=== PATIENT | male | born 1935 | race Caucasian/White ===

== ENCOUNTER 2017-11-12 07:09 | Inpatient (IN) | payer MEDICARE, OTHER ==
[2017-11-12] MEDS ORDERED: Lidocaine 1% w/Epinephrine 1:100K 20 ML VIAL ONE (07:45)
[2017-11-12] MEDS ORDERED: Bacitracin Zinc 1 Packet ONE ×2 (07:48→11:19)
[2017-11-12 09:38] LABS: #Lymphocytes 1.3 thou/uL (1.20-3.40); #Monocytes 0.8 thou/uL (0.11-0.59); #Neutrophils 11.7 thou/uL (1.40-6.50); %Basophils 0.2 % (0.0-1.0); %Eosinophils 0.3 % (0.0-10.0); %Neutrophils 84.5 % (42.0-75.0); Hemoglobin 16.5 g/dL (14.0-18.0); Mean Corpuscular HGB CONC 35.4 g/dL (32.0-36.0); Mean Corpuscular Hemoglobin 33.8 pg (27.0-31.0); Mean Corpuscular Volume 95.7 fL (78.0-98.0); Mean Platelet Volume 6.5 fL (7.4-10.4); Platelet Count 235 thou/uL (130-400); RBC Distribution Width 11.6 % (11.5-14.5); Red Blood Cell (RBC) Count 4.89 mill/uL (4.70-6.10); White Blood Cell (WBC) Count 13.9 thou/uL (4.8-10.8)
[2017-11-12] MEDS ORDERED: hydrALAZINE 20 MG/ML VIAL ONE (09:40)
[2017-11-12 09:47] LABS: PTT 23.3 SEC (22.9-36.1)
[2017-11-12 10:00] LABS: ALT (SGPT) 23 U/L (8-55); AST (SGOT) 18 U/L (5-34); Albumin 3.8 g/dL (3.4-4.8); Alkaline Phosphatase 91 U/L (40-150); Anion Gap 12 mmol/L (10-20); BUN (Urea Nitrogen) 19 mg/dL (8.4-25.7); Bilirubin, Total 0.7 mg/dL (0.2-1.2); Calc. Creatinine Clearance 0 mL/min (70-130); Calcium 9.7 mg/dL (7.8-10.44); Carbon Dioxide 30 mmol/L (23-31); Chloride 99 mmol/L (98-107); Estimated GFR-MDRD 74; Globulin 2.9 g/dL (2.4-3.5); Glucose 157 mg/dL (83-110); Potassium 3.2 mmol/L (3.5-5.1); Protein, Total 6.7 g/dL (5.8-8.1); Sodium 138 mmol/L (136-145)
--- NOTE | 2017-11-12 10:08 | CT ---
CT HEAD WITHOUT CONTRAST: Date: 11-12-17 Comparison: None. History: Fall, trauma, pain. Technique: Serial axial CT imaging at 5 mm intervals from vertex through skull base without contrast. FINDINGS: The imaged paranasal sinuses and mastoid air cells are well aerated. There is no displaced calvarial fracture noted. There is mild diffuse cerebral volume loss with associated prominence of the CSF containing spaces. On axial image 7 within the ventral aspect of the middle cranial fossa on the right there is a 6-7 mm focus of hyperdensity suggesting small volume extraaxial hemorrhage. On image 19 there is a punctate focus of hyperdensity in the frontal region on the right, also suggesting extraaxial hemorrhage. The re are linear areas of hyperdensity near the vertex on image 24 and 25 suggesting additional small vo lume extraaxial hemorrhage. There is no midline shift or mass effect seen. Probable focus of extraaxi al hemorrhage anterior to right frontal lobe on image 22. There is evidence of scalp laceration super iorly near the vertex posteriorly with associated cutaneous renita. IMPRESSION: Findings suggesting small volume multifocal extraaxial hemorrhage on the right. No associated fractur e. Results called to Dr. Watts 8:55 a.m. 11-12-17. Code CR POS: [facility]
[2017-11-12] MEDS ORDERED: Dextrose 5% in Water 1,000 ML IV PRN (11:12)
[2017-11-12] MEDS ORDERED: Dextrose 50% Abboject 50 ML SYRINGE SLOW IVP PRN (11:12)
[2017-11-12] MEDS ORDERED: Adacel (T-DAP) 0.5 ML VIAL ONE (11:29)
--- NOTE | 2017-11-12 12:14 | HP-2 ---
DATE OF ADMISSION: 11/12/2017 ATTENDING PHYSICIAN: Dr. Timmy Polo REQUESTING PHYSICIAN: Dr. Watts HISTORY OF PRESENT ILLNESS: This patient is an 82-year-old male who presents to the ED after a fall that occurred in the morning while he was trying to walk to the bathroom. The patient said that he hit his head resulting in a laceration to the back of his head. His family reports that they do believe the patient was unconscious for a short amount of time, but they could not quantify how long. They did state that they heard the fall. The patient does take a sleeping pill, it makes him very drowsy and more likely to fall. The patient does report some dizziness with movement. Other than the laceration to the back of his head, the patient does not report any other injuries or any other pains at this time. No other complaints were present today. ALLERGIES: Patient reports allergies to SULFA ANTIBIOTICS. HOME MEDICATIONS: 1. Atenolol-Chlorthalidone 100 mg/25 mg daily. 3. Trifluoperazine unknown dosage. 4. Trihexyphenidyl, unknown dosage. Medication reconciliation to be completed by floor nursing staff. PAST MEDICAL HISTORY: Hypertension, schizophrenia, insomnia. PAST SURGICAL HISTORY: Hydrocele removal, appendectomy, cholecystectomy. SOCIAL HISTORY: The patient lives at home currently with his . The patient denies any smoking history. Denies any alcohol or drug use history. FAMILY HISTORY: Noncontributory to this patient. REVIEW OF SYSTEMS: A 10 point review of systems was performed and negative except for as indicated in the HPI. PHYSICAL EXAMINATION: VITAL SIGNS: BP was 168/81, pulse 85, respirations 18. Oxygen saturation was 94% on room air. GENERAL: He is a well-developed male in no acute distress. A&O x4 HEENT: Head is normocephalic. He does have a 4 cm laceration with renita in place to the posterior occipital area of his cranium. Eyes; PERRLA. Extraocular movements are intact. NECK: Supple. Trachea is midline. No midline tenderness to palpation. CARDIOVASCULAR: Regular rate and rhythm, no murmurs. RESPIRATORY: Clear to auscultation bilaterally. No wheezing. ABDOMEN: Soft, nontender, nondistended. Bowel sounds are normoactive. MUSCULOSKELETAL: Moves all 4 extremities. No edema, no erythema. NEUROLOGIC: GCS of 15. No focal deficits noted. LABORATORY DATA: Sodium 138, potassium 3.2, chloride 99, BUN 19, creatinine 0.97, glucose 157, calcium 9.7, AST 18, ALT 23, total bilirubin 0.7, PTT 23.3, PT 13.0, INR 1.0. White blood cell count 13.9, platelet count of 235. Hemoglobin 16.5, hematocrit 46.8. RADIOGRAPHIC FINDINGS: The patient underwent a brain CT on 11/12/2017 that showed findings suggestive of small volume multifocal extraocular hemorrhage on the right, no associated fracture. ASSESSMENT AND PLAN: 1. Status post mechanical fall. 2. Multifocal extraocular hemorrhage. 3. Acute traumatic pain. 4. History of schizophrenia. 5. History of chronic sleep disorder. 6. History of hypertension. PLAN: Admit to Trauma Services. Neurosurgery PA was contacted. They have requested a schedule of a repeat CT scan this afternoon to monitor the hemorrhages. The patient will then be seen by OT and PT evaluation for possible placement into rehabilitation if needed. The patient will be started on p.o. analgesics including acetaminophen 1000 mg p.o. q.6 hours. Also, will be put on GI prophylaxis with famotidine 20 mg p.o. b.i.d. The patient will be given a regular diet and also be put on fall precautions. Plan for admission was discussed with the patient and his as well as his son, all that were present during the interview. All questions were answered at this time of dictation. This patient was seen and evaluated with the trauma attending, Dr. Polo, who is in agreement with this plan. JUANITA
[2017-11-12 13:47] VITALS: BMI 26.2
[2017-11-12] MEDS: Famotidine 20 MG TAB PO SCH (20:48)
[2017-11-12] MEDS: TRIFLUOPERAZINE HCL 2 MG PO SCH (20:48)
[2017-11-12] MEDS: FLURAZEPAM HCL 15 MG PO SCH (20:48)
[2017-11-12] MEDS: Melatonin 3 MG TAB PO SCH (20:50)
--- NOTE | 2017-11-13 02:27 | CON ---
DATE OF CONSULTATION: 11/12/2017 ATTENDING PHYSICIAN: Israel Link MD HISTORY OF PRESENT ILLNESS: The patient is an 82-year-old male with past medical history of schizophrenia, insomnia, hypertension who presented to the emergency department after a mechanical fall, which occurred while ambulating to the bathroom in the middle of the night. The patient was brought to the emergency department where CT head was done on arrival, which showed slight hyperdensity in the right frontal and parietal region suspicious for acute intracranial hemorrhage. I am seeing the patient at the bedside in the [facility], he is A and O x4. He has no focal neurologic deficits on my exam. He has no complaints at this time. PAST MEDICAL HISTORY: Hypertension, schizophrenia, insomnia. PAST SURGICAL HISTORY: Hydrocele removal, appendectomy, cholecystectomy. ALLERGIES: Patient reports allergic to SULFA. SOCIAL HISTORY: The patient resides at home with his . He does not smoke, drink, or use any drugs. FAMILY HISTORY: Noncontributory. REVIEW OF SYSTEMS: Per HPI. PHYSICAL EXAMINATION: CONSTITUTIONAL: The patient is A and O x4, comfortable, in no acute distress. GCS 15. HEAD: He has a small laceration to the occipital region with renita in place. EYES: PERRLA. Extraocular movements are intact. ENT: Oral mucosa is pink, intact and moist. He has normal voice. NECK: Nontender to palpation. Free active range of motion. No meningismus or nuchal rigidity. CARDIOVASCULAR: Regular rate and rhythm. LUNGS: The patient is breathing comfortably with symmetric chest expansion. MUSCULOSKELETAL: The patient is able to move all extremities. No focal motor weakness or reflex asymmetry. NEUROLOGIC: GCS 15, A and O x4. No focal deficits are appreciated. ASSESSMENT AND PLAN: This is an 82-year-old male who was admitted to the [facility] after mechanical fall with small intraparenchymal hemorrhage in the right frontal and right parietal region. He does not take any anticoagulants and his INR is 1.0, his platelets are 235,000. He will be monitored closely in the [facility] tonight. We will plan to repeat the exam of head CT. I do not anticipate any acute neurosurgical intervention at this time. Please reach out to Neurosurgery for additional questions or concerns. JUANITA
--- NOTE | 2017-11-13 08:30 | CT ---
PRELIMINARY REPORT/[facility]/EMERGENTY AFTER-HOURS PROCEDURE CT Head Without Intravenous Contrast CLINICAL HISTORY: 82 years old, male; Condition or disease; Other: Ich repeat eval TECHNIQUE: Axial computed tomography images of the head/brain without intravenous contrast. COMPARISON: CT Brain WO Con 2017-11-12 08:46 FINDINGS: Brain: Stable CSF density bifrontal subdural hygromas/effusions. The small superior right frontal and right temporal extra-axial hemorrhages have mildly decreased compared to the prior study. No new hem orrhages. No brain edema. No midline shift. Ventricles: Normal. No ventriculomegaly. Bones/joints: Normal. No acute fracture. Sinuses: Normal as visualized. No acute sinusitis. Mastoid air cells: Normal as visualized. No mastoid effusion. Soft tissues: Normal. Other findings: Generalized volume loss. IMPRESSION: 1. Stable CSF density bifrontal subdural hygromas/effusions. 2. The small superior right frontal and right temporal extra-axial hemorrhages have mildly decreased compared to the prior study. Thank you for allowing us to participate in the care of your patient. Dictated and Authenticated by: Jose Bliss MD 11/13/2017 5:27 AM Central Time ([place] & [place]) FINAL REPORT BRAIN CT WITHOUT IV CONTRAST: EMERGENCY AFTER HOURS EXAM TIME: 4:30 a.m. DATE: 11/13/17. COMPARISON: 11/12/17. HISTORY: Followup intracranial hemorrhage. FINDINGS: Stable bifrontal subdural hygromas. Small focus of right frontal and right temporal extraaxial hemor rhage appears somewhat less intense. No evidence for new hemorrhage. POS: [facility]
[2017-11-13] MEDS ORDERED: Prevnar 13-Val Conj/PF 0.5 ML SYRINGE IM ONE (09:00)
[2017-11-13] MEDS: Senokot S 8.6-50 MG TAB PO SCH ×2 (09:01→23:25)
[2017-11-13] MEDS: Polyethylene Glycol 3350 17 GM Packet PO SCH (09:01)
[2017-11-13] MEDS: Atenolol 50 MG TAB PO SCH (09:01)
[2017-11-13] MEDS: Famotidine 20 MG TAB PO SCH ×2 (09:02→23:25)
[2017-11-13] MEDS: TRIFLUOPERAZINE HCL 2 MG PO SCH ×3 (09:02→23:24)
[2017-11-13] MEDS: Rosuvastatin 5 MG TAB PO SCH (09:02)
[2017-11-13] MEDS: TRIHEXYPHENIDYL HCL 2 MG PO SCH ×3 (09:02→16:48)
--- NOTE | 2017-11-13 11:12 | PRG ---
DATE OF SERVICE: 11/13/2017 The patient was seen and examined, I agreed with Xuan Puri PA-C note 11/12/2017. The patient is an 82-year-old man with a recent fall. He is currently at his neurologic baseline. The radiologist felt that his initial head CT revealed some tiny extraaxial hemorrhage. This prompte d his admission. My review of the prior CT suggests that these findings are ambiguous. Certainly on the followup CT scan from this morning there is no evidence of intracranial hemorrhage. He has transportation job titles brady subdural hygromas, which are stable. IMPRESSION AND PLAN: Possible tiny extraaxial traumatic hemorrhages. Resolved on followup CT. No s pecific clinical sequelae. PLAN: He can be mobilized to dismissal. No specific recommendations for repeat imaging.
[2017-11-13] MEDS ORDERED: Lorazepam 1 MG TAB PO PRN (17:34)
[2017-11-13] MEDS ORDERED: TRIHEXYPHENIDYL HCL 2 MG PO SCH (17:45)
[2017-11-13] MEDS ORDERED: Lorazepam 2 MG/ML VIAL SLOW IVP SCH (17:45)
[2017-11-13] MEDS: FLURAZEPAM HCL 15 MG PO SCH (23:24)
[2017-11-13] MEDS: Melatonin 3 MG TAB PO SCH (23:24)
--- NOTE | 2017-11-14 01:32 | PRG ---
DATE OF SERVICE: 11/13/2017 SUBJECTIVE: The patient is status post ground level fall in which he had a small volume multifocal e xtraaxial hemorrhage that was repeat CT this morning, which showed to be stable and after evaluation by Neurosurgery, they cleared him to be discharged either to home or to rehab, whichever the patient and his family desire. The patient had no issues overnight. This morning, he is tolerating a diet. His pain is controlled. He has worked with physical and occupational therapy to such a degree of th at they have actually discharged him to the walking program. After discussion with the family, they would still like him evaluated for therapy due to his repeated frequent falls. PHYSICAL EXAMINATION: VITAL SIGNS: Temperature is 98.4, heart rate 77, blood pressure 131/54, respirations 16, oxygen satu ration 96% on room air. GENERAL: The patient is sitting on the side of his bed. He is awake, alert, conversant, and appropr iate. HEENT: Essentially unchanged. His renita in the posterior aspect of his head are clean, dry, and i ntact. No evidence or signs of infection. Eyes: Extraocular motion intact. PERRLA bilaterally. E ars are atraumatic without discharge. Nose is atraumatic without discharge. Oropharynx is clear. NECK: Nontender. Trachea is midline. No JVD. LUNGS: Chest is clear to auscultation with good inspiratory and expiratory effort. HEART: Regular rate and rhythm. EXTREMITIES: The patient freely moves all 4 extremities. His capillary refill is less than 3 second s and his pulses are 2+. LABORATORY DATA: There are no labs this morning. RADIOGRAPHS: A repeat CT of the brain show the small superior right frontal and right temporal extra axial hemorrhages have mildly decreased compared to the prior study. ASSESSMENT AND PLAN: 1. Status post ground level fall. 2. Resolving intracranial hemorrhages. 3. History of frequent falls. Plan will be to have the patient evaluated by rehab for possibility of placement. The evaluation and examination were discussed with Dr. Polo at rounds this morning.
[2017-11-14] MEDS ORDERED: Lorazepam 1 MG TAB PO SCH (03:45)
[2017-11-14] MEDS: TRIHEXYPHENIDYL HCL 2 MG PO SCH ×3 (09:31→17:48)
[2017-11-14] MEDS: TRIFLUOPERAZINE HCL 2 MG PO SCH ×5 (09:31→20:46)
[2017-11-14] MEDS: Senokot S 8.6-50 MG TAB PO SCH ×2 (09:32→20:47)
[2017-11-14] MEDS: Atenolol 50 MG TAB PO SCH (09:32)
[2017-11-14] MEDS: Polyethylene Glycol 3350 17 GM Packet PO SCH (09:33)
[2017-11-14] MEDS: Famotidine 20 MG TAB PO SCH ×2 (09:33→20:47)
[2017-11-14] MEDS: Rosuvastatin 5 MG TAB PO SCH (09:33)
[2017-11-14] MEDS: Melatonin 3 MG TAB PO SCH (20:03)
[2017-11-14] MEDS: FLURAZEPAM HCL 15 MG PO SCH (20:44)
[2017-11-14] MEDS: Acetaminophen 500 MG TAB PO PRN (20:44)
--- NOTE | 2017-11-14 21:02 | PRG ---
DATE OF SERVICE: 11/14/2017 SUBJECTIVE: The patient is currently on the surgical floor. He is status post ground level fall in which he sustained very small extraaxial hemorrhages on his frontal region. A repeat CT showed that these had almost completely resolved and the patient was hopefully being placed in a rehab facility, but overnight the patient primarily due to his schizophrenia, underlying his recent traumatic brain i alfredo was extremely agitated all night. He was pacing around and required a sitter and eventually re straints. This morning, the patient is resting comfortably. He is awake. He is able to be come out of his restraints and he is somewhat conversant. He appears to me to be back at his baseline. PHYSICAL EXAMINATION: VITAL SIGNS: Temperature is 98.2, heart rate 83, blood pressure 129/66, respirations 20, oxygen satu ration 95% on room air. GENERAL: The patient is resting comfortably in bed. He will open his eyes to verbal stimuli and karen l answer very simple questions. Does not recall anything going on last night. States that he is cur rently not hungry and he will follow simple commands. HEENT: Unchanged. LUNGS: Clear to auscultation with good inspiratory and expiratory effort. HEART: Regular rate and rhythm. ABDOMEN: Soft, flat, nontender with active bowel sounds. EXTREMITIES: Neurovascularly intact x4. LABORATORY DATA: There are no labs or radiographs to review this morning. ASSESSMENT AND PLAN: 1. Status post ground level fall. 2. Resolving intracranial hemorrhages. 3. History of frequent falls. 4. History of schizophrenia. Plan will be to continue supportive care. Lengthy discussion was had with the and son in regard s to the patient unlikely being a good candidate to go to inpatient rehabilitation due to the fact th at he becomes so agitated. Now, he is out of his normal routine. The son was very agreeable to this point and we will discuss if there are any other options for the patient to include possibly getting outpatient home health to assist. We will have the case workers work with that and also possibly ad vise them on having the patient placed through their primary care provider.
[2017-11-15 04:21] LABS: #Lymphocytes 1.2 thou/uL (1.20-3.40); #Monocytes 1.5 thou/uL (0.11-0.59); #Neutrophils 15.4 thou/uL (1.40-6.50); %Basophils 0.2 % (0.0-1.0); %Eosinophils 0.2 % (0.0-10.0); %Lymphocytes 6.4 % (21.0-51.0); %Neutrophils 85.2 % (42.0-75.0); Hemoglobin 12.9 g/dL (14.0-18.0); Mean Corpuscular HGB CONC 35.1 g/dL (32.0-36.0); Mean Corpuscular Hemoglobin 33.9 pg (27.0-31.0); Mean Corpuscular Volume 96.6 fL (78.0-98.0); Mean Platelet Volume 6.8 fL (7.4-10.4); Platelet Count 184 thou/uL (130-400); RBC Distribution Width 11.6 % (11.5-14.5); Red Blood Cell (RBC) Count 3.81 mill/uL (4.70-6.10); White Blood Cell (WBC) Count 18.1 thou/uL (4.8-10.8)
--- NOTE | 2017-11-15 08:10 | RAD ---
PORTABLE CHEST: Date: 11/15/17 HISTORY: Fever. FINDINGS: The lung cifuentes are clear. No infiltrate or vascular congestion. Heart and mediastinum unremarkable. IMPRESSION: No acute lung process. POS: [facility]
[2017-11-15] MEDS: Atenolol 50 MG TAB PO SCH (09:33)
[2017-11-15] MEDS: Rosuvastatin 5 MG TAB PO SCH (09:33)
[2017-11-15] MEDS: Polyethylene Glycol 3350 17 GM Packet PO SCH (09:33)
[2017-11-15] MEDS: Senokot S 8.6-50 MG TAB PO SCH ×2 (09:33→20:24)
[2017-11-15] MEDS: Famotidine 20 MG TAB PO SCH ×2 (09:33→20:25)
[2017-11-15] MEDS: TRIHEXYPHENIDYL HCL 2 MG PO SCH ×3 (10:23→18:05)
[2017-11-15] MEDS: TRIFLUOPERAZINE HCL 2 MG PO SCH ×3 (10:27→20:24)
[2017-11-15 11:27] LABS: Bilirubin Negative (Negative); Blood, Urine Negative (Negative); Clarity CLEAR (Clear); Glucose, Urine (Dipstick) Negative (Negative); Leukocyte Negative (Negative); Nitrite Negative (Negative); Protein, Urine (Dipstick) 30 mg/dL (Neg-Trace); Specific Gravity, Urine 1.027 (1.002-1.036); Urobilinogen 0.2 mg/dL (0.2-1.0); pH, Urine 6.5 (5.0-9.0)
[2017-11-15 11:29] LABS: Bacteria/HPF None Seen HPF (None Seen); Hyaline Casts/LPF 0-3 HYALINE CAST LPF (0-3 Hyaline); Pathc Cast-AUWi Flag 0.43 (0-2.49)
[2017-11-15 11:43] LABS: RBC/HPF 0-3 HPF (0-3); Renal Epithelial 0-3 HPF (0-3); Transitional Epithelial 0-3 HPF (0-3)
[2017-11-15] MEDS: FLURAZEPAM HCL 15 MG PO SCH (20:23)
[2017-11-15] MEDS: Acetaminophen 500 MG TAB PO PRN (20:24)
[2017-11-15] MEDS: Melatonin 3 MG TAB PO SCH (22:15)
[2017-11-16 08:37] LABS: #Eosinphils 0.1 thou/uL (0.0-0.7); #Lymphocytes 1.2 thou/uL (1.20-3.40); #Monocytes 1.5 thou/uL (0.11-0.59); #Neutrophils 13.7 thou/uL (1.40-6.50); %Basophils 0.1 % (0.0-1.0); %Eosinophils 0.5 % (0.0-10.0); %Lymphocytes 7.3 % (21.0-51.0); %Monocytes 8.9 % (0.0-10.0); %Neutrophils 83.2 % (42.0-75.0); Mean Corpuscular HGB CONC 33.7 g/dL (32.0-36.0); Mean Corpuscular Hemoglobin 32.8 pg (27.0-31.0); Mean Corpuscular Volume 97.3 fL (78.0-98.0); Mean Platelet Volume 6.4 fL (7.4-10.4); Platelet Count 189 thou/uL (130-400); RBC Distribution Width 11.5 % (11.5-14.5); Red Blood Cell (RBC) Count 4.25 mill/uL (4.70-6.10); White Blood Cell (WBC) Count 16.5 thou/uL (4.8-10.8)
[2017-11-16] MEDS: Famotidine 20 MG TAB PO SCH ×2 (08:43→20:04)
[2017-11-16] MEDS: Atenolol 50 MG TAB PO SCH (08:43)
[2017-11-16] MEDS: Rosuvastatin 5 MG TAB PO SCH (08:43)
[2017-11-16] MEDS: TRIHEXYPHENIDYL HCL 2 MG PO SCH ×3 (08:44→18:14)
[2017-11-16] MEDS: Polyethylene Glycol 3350 17 GM Packet PO SCH (08:44)
[2017-11-16] MEDS: Senokot S 8.6-50 MG TAB PO SCH ×2 (08:44→20:04)
[2017-11-16] MEDS: TRIFLUOPERAZINE HCL 2 MG PO SCH ×3 (08:44→20:04)
--- NOTE | 2017-11-16 11:22 | RAD ---
FOUR VIEW RIGHT ELBOW SERIES: INDICATION: Right elbow injury, pain, recent fall. FINDINGS: There is a prominent olecranon enthesophyte with overlying soft tissue prominence. Underlying soft t issue hypodensity could relate to air from a laceration. Correlate clinically in this regard. 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 There is joint capsular distention. A component of cortical irregularity does overlie the medial epicondyle of the distal humerus. There is also slight cortical lucency about the radial head. IMPRESSION: Joint capsular distention with areas of cortical irregularity of the elbow as discussed above. If ne cessary, CT exam may be prove useful for further anatomic delineation. POS: [facility]
--- NOTE | 2017-11-16 11:39 | CON ---
DATE OF CONSULTATION: 11/16/2017 REQUESTING PHYSICIAN: Trauma Service CONSULTING PHYSICIAN: Sulaiman Duong M.D. REASON FOR CONSULTATION: Possible right elbow septic olecranon bursitis. HISTORY OF PRESENT ILLNESS: This is an 82-year-old male who was admitted to our facility this past T nu 11/12/2017 after a fall at home. He was attempting to walk to the bathroom. It was reported that he hit his head and sustained a laceration. CT scan showed an extraaxial hemorrhage. The ricardo ent has been followed by Neurosurgery and the extraaxial hemorrhage has now resolved. The patient wa s being readied to be discharged to a assisted facility when he was noted to have redness and swelling to his right elbow. We have been consulted for this reason. Today at bedside, the family r eports that they believe he might have struck his elbow on his fall on . They state he is a frequent gina. He is right hand dominant. They do report that he had some redness to the right el bow when he was admitted. They feel that his swelling and redness increased overnight last night. T zacarias report drainage started this morning. He has had fever during this admission approximately 2 nig hts ago. He denies a history of a septic joint. He denies any history of orthopedic surgery to this extremity in the past. PAST MEDICAL HISTORY: Hypertension, schizophrenia, insomnia. PAST SURGICAL HISTORY: Appendectomy, cholecystectomy, hydrocele. SOCIAL HISTORY: The patient lives at home with his . He denies any smoking, alcohol or illicit drug use. FAMILY HISTORY: Reviewed and noncontributory. REVIEW OF SYSTEMS: A 10 point review of systems was conducted and otherwise negative except for as s tated above. PHYSICAL EXAMINATION: VITAL SIGNS: Blood pressure 144/72, pulse 82, temperature 98.7, O2 saturation 92% on room air and re spiratory rate of 20. GENERAL: The patient is awake, alert, and oriented x3. He is in no acute distress. Family is at be dside. He is pleasant and cooperative with exam findings today. HEENT: Head is normocephalic, atraumatic. NECK: Supple. Trachea is midline. EXTREMITIES: The right upper extremity was evaluated. There is erythema to the elbow with some soft tissue swelling present. There is soft tissue swelling proximal to mid humerus. There is soft tiss ue swelling distal all the way to the fingertips. There is spontaneous drainage from the elbow olecr anon region. There is an opening approximately 0.5 cm. Drainage appears to be clear. No purulence noted. Range of motion assessed. The patient has active range of motion including flexion and exten luis alberto without any pain or difficulty. The patient is also able to pronate and supinate without any pa in or difficulty. Distal neurovascular status is intact. The remainder of the extremity exam is unr emarkable. RADIOGRAPHIC FINDINGS: Including 4 views of the right elbow taken today show no evidence for acute f racture. There is evidence of an olecranon bone spur. There is also evidence of a cortical irregula rity along the shaft of the ulna. These findings were reviewed with Dr. Duong today. LABORATORY DATA: CBC today shows a white blood cell count of 16.5. This is decreased from 18.1 yest erday. Hemoglobin of 14.0, hematocrit of 41.4, platelet count of 189. ASSESSMENT: Right elbow olecranon bursitis with spontaneous drainage. PLAN: Case briefly discussed with Dr. Duong. He will consult with me at bedside once he returns from clinic today. I have discussed with the patient today that it is very likely that we will start him on antibiotics. Trauma Service has discussed clindamycin. He last ate breakfast this morning. There is a possibility of incision and drainage. We will further discuss plan of care once Dr. Halley morillo arrives here at the hospital. No evidence of septic joint at this time. Thank you for this consultation.
[2017-11-16] MEDS ORDERED: Clindamycin/D5W 900 MG in Premix Bag 1 BAG IVPB ONE (14:00)
--- NOTE | 2017-11-16 18:08 | PRG ---
DATE OF SERVICE: 11/16/2017 SUBJECTIVE: Mr. King is post-injury day 4 status post ground level fall. The patient suffered smal l right frontal intracerebral hemorrhage. He has remained neurologically normal overnight. He defin itely is less impulsive today. The patient reports he is sleeping quite well as night and had a breakfast this morning. OBJECTIVE: VITAL SIGNS: This morning includes blood pressure 144/72, pulse 82, respiratory rate 20, maximum tem perature in the last 24 hours was 98.4 degrees Fahrenheit, although 2 days previously patient was afe brile with maximum temperature of 101 degrees Fahrenheit. HEENT: Reveals normocephalic and atraumatic. HEART: Reveals regular rate and rhythm, no murmurs or gallops auscultated. LUNGS: Clear to auscultation bilaterally. Breathing is regular and unlabored. ABDOMEN: Soft, nontender and nondistended. EXTREMITIES: Reveals 2+ radial and pedal pulses bilaterally. No ankle edema is present. Right elbo w is quite red and indurated over the olecranon process. This is also tender with range of motion. NEUROLOGIC: Examination reveals no focal deficits present. LABORATORY DATA: Pertinent laboratory finding today includes CBC with 16,500 white blood cells, hemo globin and hematocrit 14.0 and 41.4 respectively. Platelet count is 189,000. Metabolic profile was not obtained today. IMPRESSION: 1. Post-injury day 4 status post ground level fall. 2. Acute traumatic brain injury, stable. 3. Acute left elbow cellulitis, rule out olecranon bursitis. PLAN: 1. Continue with physical and occupational therapy in anticipation for possible discharge to [facility] rehabilitation. 2. We would initiate antibiotic therapy to cover Staphylococcus aureus. 3. We will ask Orthopedic Surgery to evaluate the patient to exclude joint involvement.
[2017-11-16] MEDS: Melatonin 3 MG TAB PO SCH (20:04)
[2017-11-16] MEDS: FLURAZEPAM HCL 15 MG PO SCH (20:04)
[2017-11-16] MEDS: Clindamycin 150 MG CAP PO SCH (21:14)
[2017-11-17] MEDS: Clindamycin 150 MG CAP PO SCH ×2 (05:52→14:57)
[2017-11-17 06:08] LABS: #Eosinphils 0.1 thou/uL (0.0-0.7); #Lymphocytes 1.3 thou/uL (1.20-3.40); #Monocytes 1.3 thou/uL (0.11-0.59); #Neutrophils 11.1 thou/uL (1.40-6.50); %Basophils 0.2 % (0.0-1.0); %Eosinophils 0.7 % (0.0-10.0); %Lymphocytes 9.5 % (21.0-51.0); %Monocytes 9.7 % (0.0-10.0); %Neutrophils 79.9 % (42.0-75.0); Hemoglobin 12.9 g/dL (14.0-18.0); Mean Corpuscular Hemoglobin 34.2 pg (27.0-31.0); Mean Corpuscular Volume 97.5 fL (78.0-98.0); Platelet Count 200 thou/uL (130-400); RBC Distribution Width 11.4 % (11.5-14.5); Red Blood Cell (RBC) Count 3.79 mill/uL (4.70-6.10); White Blood Cell (WBC) Count 13.8 thou/uL (4.8-10.8)
--- NOTE | 2017-11-17 07:46 | ADD-CON ---
ADDENDUM: The patient was seen and examined with Dr. Duong. We have applied a dry dressing to his right elb ow. He will get one dose of clindamycin 900 mg IV. The patient may then transition to p.o. clindamy chanda. He will continue dry dressing changes over the next week daily. He will continue p.o. clindamy chanda and may follow up in a wound check with his primary care physician in 1 week. No surgical interv ention anticipated at this time.
[2017-11-17] MEDS: Senokot S 8.6-50 MG TAB PO SCH (08:49)
[2017-11-17] MEDS: Famotidine 20 MG TAB PO SCH (08:49)
[2017-11-17] MEDS: Atenolol 50 MG TAB PO SCH (08:49)
[2017-11-17] MEDS: TRIHEXYPHENIDYL HCL 2 MG PO SCH ×2 (08:50→12:21)
[2017-11-17] MEDS: Polyethylene Glycol 3350 17 GM Packet PO SCH (08:50)
[2017-11-17] MEDS: TRIFLUOPERAZINE HCL 2 MG PO SCH (08:51)
[2017-11-17] MEDS: Rosuvastatin 5 MG TAB PO SCH (08:54)
[2017-11-17] MEDS ORDERED: Saccharomyces boulardii 250 MG CAP PO SCH (09:00)
[2017-11-17 11:18] VITALS: BP 154/80; TEMP 98
--- NOTE | 2017-11-17 13:54 | PDOC.GSPN ---
Surgery Progress Note: Subj - Subjective Patient reports: no new complaints Surgery Progress Note: Obj - Vital signs Vital signs: Vital Signs - Most Recent Temp Pulse Resp BP Pulse Ox 98.0 F 66 16 154/80 H 92 L 11/17/17 11:17 11/17/17 11:17 11/17/17 11:17 11/17/17 11:17 11/17/17 11:17 - Physical Exam General: no distress Neck: trachea midline Cardiovascular: regular rate and rhythm Respiratory: clear to auscultation, normal expansion, normal respiratory effort Abdomen: soft, non tender, nondistended Musculoskeletal: other (VASQUEZ x4) Additional exam: Neuro: No focal deficit Surgery Progress Note: Results - Labs Result Diagrams: 11/17/17 05:22 11/12/17 09:27 Lab results: Laboratory Results - last 24 hr 11/17/17 05:22 WBC 13.8 H RBC 3.79 L Hgb 12.9 L Hct 37.0 L MCV 97.5 MCH 34.2 H MCHC 35.0 RDW 11.4 L Plt Count 200 MPV 7.0 L Neutrophils % 79.9 H Lymphocytes % 9.5 L Monocytes % 9.7 Eosinophils % 0.7 Basophils % 0.2 Neutrophils # 11.1 H Lymphocytes # 1.3 Monocytes # 1.3 H Eosinophils # 0.1 Basophils # 0.0 Surgery Progress Note: A/P - Plan Plan: Continue supportive care as ordered. F/u with case management. Pt will need placement at snf, likely short term (30 days or less) for rehab/physical therapy , assistance with ADLs. Should continue clindamycin until ortho f/u.
--- NOTE | 2017-11-18 07:02 | DIS ---
DATE OF ADMISSION: 11/12/2017 DATE OF DISCHARGE: 11/17/2017 ADMISSION DIAGNOSES: 1. Status post mechanical fall. 2. Intraparenchymal hemorrhage. 3. Acute traumatic pain. 4. Schizophrenia. 5. History of hypertension. DISCHARGE DIAGNOSES: 1. Status post mechanical fall. 2. Intraparenchymal hemorrhage. 3. Acute traumatic pain. 4. Schizophrenia. 5. History of hypertension. CONSULTANTS: Dr. Link, Neurosurgery. Dr. Duong, Orthopedic Surgery. PROCEDURES: None. HOSPITAL COURSE: Abel King is an 82-year-old male who presented to [facility] status post mechani laney fall. The patient was found to have an intraparenchymal hemorrhage and evaluated by Neurosurgery . There was no operative intervention indicated at that time. Although, the patient continued to re main stable clinically. He did have increasing swelling and redness of his right elbow. He was seen and evaluated by Orthopedic Surgery secondary to concerns for septic joint versus bursitis. He was started on oral antibiotics. The patient was seen and evaluated by case management and eventually ac cepted to alf facility at [facility]. DISCHARGE DISPOSITION: snf facility. PHYSICAL EXAMINATION: As documented in daily progress note dated 11/17/2017. DISCHARGE INSTRUCTIONS: Discharge instructions were provided to the patient and the accepting facili ty. All questions were answered at the time of discharge. The patient should keep his right upper e xtremity dressing with daily wound care clean, dry, and intact. He should refrain from any anticoagu lants or blood thinners to include aspirin. DISCHARGE MEDICATIONS: Discharge medications as documented in the electronic medical record, list of which was sent to the accepting facility. He should continue oral clindamycin for 7 days until woun d check on his right upper extremity. FOLLOWUP APPOINTMENTS: The patient should followup with his primary care provider as needed. He renee uld followup with Orthopedic Surgery for his right upper extremity. He does to follow up with Neuros urgery for intraparenchymal hemorrhage status post fall. He does not need to follow up with Trauma s ervices of Dr. Polo formally, but may call our office with any questions. This is merely a summary of the patient's hospitalization. For more in depth information, please see his medical record in it s entirety.
== END 2017-11-17 15:15 | DRG 83 ==
LOC: ERS 07:09 → IMCU/EMU 11:00 → SURG A 11-13 16:39
PROVIDERS: ADMIT Surgery; ATTEND Surgery
DX: S06.309A Unspecified focal traumatic brain injury with loss of consciousness of unspecified duration, initial encounter (principal); M00.9 Pyogenic arthritis, unspecified; L03.114 Cellulitis of left upper limb; S01.01XA Laceration without foreign body of scalp, initial encounter; G89.11 Acute pain due to trauma; F20.9 Schizophrenia, unspecified; I10 Essential (primary) hypertension; W18.30XA Fall on same level, unspecified, initial encounter; Y92.009 Unspecified place in unspecified non-institutional (private) residence as the place of occurrence of the external cause; G47.00 Insomnia, unspecified; B96.89 Other specified bacterial agents as the cause of diseases classified elsewhere; Z91.81 History of falling
CPT/HCPCS: 12002; 36415; 70450; 71045; 80053; 81003; 81015; 85025; 85610; 85730; 90471; 90715; 96374; G0390; G8978-GP-CJ; G8979-GP-CJ; G8980-GP-CJ; G8987-GO-CI; G8988-GO-CI; G8989-GO-CI; J0360; J2001; J3490

== ENCOUNTER 2017-11-18 01:46 | Emergency (ER) | payer MEDICARE ==
--- NOTE | 2017-11-18 07:20 | CT ---
CT BRAIN WITHOUT CONTRAST: Date: 11/18/17 HISTORY: Fall. COMPARISON: CT brain dated 11/13/17. TECHNIQUE: There has been interval resolution of the right frontal extra-axial hemorrhage. There is an interval size decrease of the right temporal extra-axial hemorrhage. There is similar appearance of the diffus e cerebral volume loss with associated prominence of the CSF-containing spaces. No midline shift or mass effect. No intra-axial hemorrhage. The mastoids are clear. Right posterior parietal soft tissue renita are present. No acute infarction. IMPRESSION: Partial resolution of the right frontal and interval decrease in attenuation of the right temporal ex tra-axial hemorrhages. No new acute hemorrhage. No new infarction. POS: HOME
--- NOTE | 2017-11-18 07:22 | CT ---
CT CERVICAL SPINE WITHOUT CONTRAST: Date: 11/18/17 HISTORY: Fall. COMPARISON: None. FINDINGS: The occipital condyles are intact. The odontoid process is intact. No acute fracture or malalignment of the cervical spine. Arthrosis bilaterally throughout the cervical spine. No listhesis. Mastoids are clear. Lung apices are clear. Thyroid mildly enlarged. No perispinal muscle hematoma. IMPRESSION: No acute fracture or malalignment of the cervical spine. POS: HOME
== END 2017-11-18 06:55 | disposition home or self-care (01) ==
LOC: ERS 01:46
DX: Z04.3 Encounter for examination and observation following other accident (principal); I10 Essential (primary) hypertension; K21.9 Gastro-esophageal reflux disease without esophagitis; F20.9 Schizophrenia, unspecified; E78.00 Pure hypercholesterolemia, unspecified; Z79.899 Other long term (current) drug therapy
CPT/HCPCS: 70450; 72125

== ENCOUNTER 2017-11-20 14:09 | Inpatient (IN) | payer MEDICARE ==
[2017-11-20 14:58] LABS: #Eosinphils 0.1 thou/uL (0.0-0.7); #Lymphocytes 1.5 thou/uL (1.20-3.40); #Monocytes 1.8 thou/uL (0.11-0.59); %Basophils 0.2 % (0.0-1.0); %Eosinophils 0.6 % (0.0-10.0); %Lymphocytes 8.3 % (21.0-51.0); %Monocytes 10.5 % (0.0-10.0); %Neutrophils 80.3 % (42.0-75.0); Hemoglobin 14.1 g/dL (14.0-18.0); Mean Corpuscular HGB CONC 34.6 g/dL (32.0-36.0); Mean Corpuscular Hemoglobin 33.5 pg (27.0-31.0); Mean Corpuscular Volume 96.7 fL (78.0-98.0); Mean Platelet Volume 6.5 fL (7.4-10.4); Platelet Count 304 thou/uL (130-400); RBC Distribution Width 11.5 % (11.5-14.5); Red Blood Cell (RBC) Count 4.22 mill/uL (4.70-6.10); White Blood Cell (WBC) Count 17.4 thou/uL (4.8-10.8)
[2017-11-20 15:19] LABS: ALT (SGPT) 48 U/L (8-55); AST (SGOT) 50 U/L (5-34); Alkaline Phosphatase 72 U/L (40-150); BUN (Urea Nitrogen) 17 mg/dL (8.4-25.7); Bilirubin, Total 0.9 mg/dL (0.2-1.2); Calc. Creatinine Clearance 0 mL/min (70-130); Calcium 8.9 mg/dL (7.8-10.44); Estimated GFR-MDRD 87; Globulin 3.4 g/dL (2.4-3.5); Glucose 162 mg/dL (83-110); Protein, Total 6.4 g/dL (5.8-8.1)
[2017-11-20] MEDS ORDERED: Sodium Chloride 0.9% 100 ML ONE (15:20)
[2017-11-20] MEDS ORDERED: cefTRIAXone\\ROCEPHIN 1 GM VIAL ONE (15:20)
--- NOTE | 2017-11-20 15:33 | RAD ---
CHEST ONE VIEW: 11/20/17 COMPARISON: 11/15/17. HISTORY: Shortness of breath. FINDINGS: Slight elongation of the aorta. Normal cardiac silhouette. Pulmonary vessels and hilum are normal. Co stophrenic angles are clear. Chronic changes in the lung parenchyma, without consolidation or mass. No pneumothorax or osseous abnormalities. IMPRESSION: No acute cardiopulmonary process. POS: [facility]
[2017-11-20 15:34] LABS: Anion Gap 14 mmol/L (10-20); Carbon Dioxide 33 mmol/L (23-31); Chloride 91 mmol/L (98-107); Sodium 135 mmol/L (136-145); Troponin I Less than 0.010 ng/mL (< 0.028)
--- NOTE | 2017-11-20 15:34 | RAD ---
RIGHT ELBOW 4 VIEWS: HISTORY: Fall. Right arm injury. FINDINGS: Posterior osteophyte at posterior aspect of the olecranon. Mild elevation of the distal humeral fat pad suggests joint fluid. No acute fracture or dislocation. Mild osteophytosis. IMPRESSION: Small amount of joint fluid without acute osseous abnormality demonstrated. If symptoms warrant, ple ase consider immobilization and short-term radiographic followup. Effusion versus acute injury and h emarthrosis. POS: [facility]
[2017-11-20 15:39] LABS: CKMB 6.9 ng/mL (0-6.6)
--- NOTE | 2017-11-20 16:15 | ULT ---
VENOUS DUPLEX SONOGRAM RIGHT UPPER EXTREMITY: 11/20/17 HISTORY: Right arm pain and edema. FINDINGS: good color and spectral doppler flow are apparent within the right internal jugular and subclavian ve ins and the right axillary, brachial, cephalic, and basilic veins. No internal thrombus. IMPRESSION: No sonographic evidence of DVT within the right upper extremity. POS: [facility]
[2017-11-20 16:23] LABS: Bilirubin Negative (Negative); Blood, Urine Negative (Negative); Clarity CLEAR (Clear); Glucose, Urine (Dipstick) Negative (Negative); Leukocyte Negative (Negative); Nitrite Negative (Negative); Protein, Urine (Dipstick) Trace mg/dL (Neg-Trace); Specific Gravity, Urine 1.015 (1.002-1.036)
[2017-11-20] MEDS ORDERED: Potassium Chloride 20 MEQ TAB ONE ×2 (17:11)
[2017-11-20] MEDS ORDERED: TRIHEXYPHENIDYL HCL PO SCH (18:45)
[2017-11-20] MEDS ORDERED: Potassium Chloride 20 MEQ TAB PO SCH (19:00)
[2017-11-20] MEDS ORDERED: Vancomycin HCl 1 GM in Premix Bag 1 BAG IVPB SCH (21:00)
[2017-11-20] MEDS ORDERED: TRIFLUOPERAZINE HCL PO SCH (21:00)
[2017-11-20] MEDS ORDERED: [UNRECOGNIZED DRUG - OTHER] PO SCH (21:00)
[2017-11-20] MEDS: Piperacillin/Tazobactam 3.375 GM in Sodium Chloride 0.9% 100 ML IVPB SCH (21:31)
[2017-11-20] MEDS: Senokot S 8.6-50 MG TAB PO SCH (21:32)
[2017-11-20] MEDS: Famotidine 20 MG TAB PO SCH (21:32)
[2017-11-21] MEDS: Piperacillin/Tazobactam 3.375 GM in Sodium Chloride 0.9% 100 ML IVPB SCH ×4 (03:47→21:30)
[2017-11-21] MEDS: Vancomycin HCl 1 GM in Premix Bag 1 BAG IVPB SCH ×2 (04:42→17:08)
--- NOTE | 2017-11-21 04:54 | HP ---
CHIEF COMPLAINT: Right arm swelling. HISTORY OF PRESENT ILLNESS: The patient is a very pleasant 82-year-old male, who was recently discha rged from the hospital on 11/17/2017 after having a mechanical fall and also had an intraparenchymal hemorrhage. The patient at that time was noticed to have some right side elbow swelling; however, it was not very significant and was put on oral antibiotics and discharged to Health system. The patient comes in today with complaints of worsening right elbow pain, redness, swelli ng, and fever. The patient states that he has noticed that his right elbow has been becoming more er ythematous and also significant amount of pain and tenderness upon movement. PAST MEDICAL HISTORY: Hypertension, schizophrenia, and insomnia. PAST SURGICAL HISTORY: Hydrocele removal, appendectomy, cholecystectomy. FAMILY HISTORY: Denies any family history of heart disease or cancer. ALLERGIES: The patient is allergic to SULFA DRUGS, was unable to recall the reaction. HOME MEDICATIONS: As the following: This is per the discharge list. The patient takes at nig ht and 1 mg in the morning. He also takes trifluoperazine hydrochloride 1 tablet 3 times a day, Seno luciana 1 b.i.d., Florastor 250 mg daily, rosuvastatin 5 mg daily, MiraLax 17 grams p.o. daily, flurazepa m 2 caps p.o. at bedtime, Pepcid 20 mg b.i.d. He was on clindamycin and doxycycline and he has been taking atenolol and chlorthalidone 1 p.o. daily which is 10/25 mg and Tylenol 1000 mg p.o. q.6 hours for pain. REVIEW OF SYSTEMS: All negative except for the ones mentioned above in the HPI. PHYSICAL EXAMINATION: VITAL SIGNS: The patient's blood pressure is 140/80. He is currently afebrile, 72 heart rate, 98% o n room air. GENERAL: He is awake, alert, oriented x3, does not appear in any distress. CARDIOVASCULAR: S1, S2 present. No murmurs, rubs or gallops. LUNGS: Clear to auscultation, no rhonchi or wheezes noted. ABDOMEN: Soft, nontender. Bowel sounds are present x2. EXTREMITIES: He has got significant pain upon palpation of his right elbow, significant amount of er ythema; however, his radial pulse is palpable. He does have a very small opening around his right el bow and this patient's stated that that is why he had sustained the fall, it is draining some pu rulent discharge, which appears to be a boil underneath his right armpit, which has significant amoun t of purulent drainage. He has got +2 lower extremity pitting edema. NEUROLOGIC: No focal neurological abnormality noted. SKIN: Otherwise, is intact. LABORATORY DATA: Labs are as the following: WBCs of 17.4, hemoglobin of 14.1, hematocrit of 40.8, p latelets of 304. Chemistry: Sodium of 135, potassium of 3.0, bicarbonate of 33, BUN of 17, creatini ne 0.85, glucose of 162, AST of 50, ALT of 48. C-reactive protein was 14.3. He also had a right elb ow x-ray which indicated small amount of joint fluid without any acute osseous abnormality and he als o had a vascular ultrasound given the redness to rule out any DVT. It was negative for DVT. ASSESSMENT AND PLAN: The patient is a very pleasant 82-year-old man, who presents to the hospital wi th worsening right arm pain and redness. 1. Right arm cellulitis. The ER physician did call Orthopedics for possible concern for septic join t and for drainage; however, at this time, recommended IV antibiotics. The patient does have a small opening which is draining very purulent discharge around the right elbow area which has been culture d. Also, he has a boil which started draining significant amount of purulent material, which was als o cultured and sent. The patient's erythema has been marked. We will start patient on broad spectru m antibiotics since his recent hospital stay, we will start him on vancomycin and ceftriaxone. Also, blood cultures were done. We will consult Orthopedic for joint aspiration if his right joint tends to worsen. 2. Leukocytosis. The patient is currently on broad spectrum antibiotics. We will continue to monit or. 3. Hypokalemia. We will replace. 4. History of schizophrenia. We will continue patient's home medication. 5. Deep venous thrombosis prophylaxis. We will put the patient on sequential compression devices an d also get a Physical Therapy consult. The patient recently had an intraparenchymal hemorrhage. We will avoid all blood thinners for now.
--- NOTE | 2017-11-21 05:24 | CON ---
DATE OF CONSULTATION: 11/20/2017 REASON FOR CONSULTATION: Right elbow pain, swelling and redness. HISTORY OF PRESENT ILLNESS: He is an 82-year-old gentleman who presents with complaints of pain and swelling in the right elbow, pain extends mostly in the posterior aspect of the elbow later. There i s no pain deep in his elbow and he does have pain with flexion of his elbow unless he flexes it great er than 90 degrees and stretches the skin posteriorly. Exam shows that he has swelling about the elb ow, range of motion is about -10 to 90 without pain and beyond 90 degrees he start experiencing pain mostly from skin stretching. He has no pain with pronation and supination with the elbow flexed 80 d egrees. LABORATORY DATA: Show elevated white count and elevated CRP. Radiographs show some intra-articular effusion. ASSESSMENT: This gentleman has a very benign exam with motion of the elbow, tapping of the elbows is really not possible at this time. Joint aspiration would likely introduce bacteria. At this time, I do not feel surgery is indicated. We will follow along with you.
[2017-11-21] MEDS ORDERED: Vancomycin HCl 1.5 GM in Sodium Chloride 0.9% 250 ML 300 ML IVPB SCH (09:00)
[2017-11-21] MEDS ORDERED: Rosuvastatin 5 MG TAB PO SCH (09:00)
[2017-11-21] MEDS ORDERED: Prevnar 13-Val Conj/PF 0.5 ML SYRINGE IM ONE (09:00)
[2017-11-21] MEDS ORDERED: TRIHEXYPHENIDYL HCL PO SCH (09:00)
[2017-11-21] MEDS ORDERED: TRIHEXYPHENIDYL HCL 2 MG PO SCH (09:00)
[2017-11-21] MEDS: Polyethylene Glycol 3350 17 GM Packet PO SCH (09:34)
[2017-11-21] MEDS: Senokot S 8.6-50 MG TAB PO SCH ×2 (09:35→21:29)
[2017-11-21] MEDS: Famotidine 20 MG TAB PO SCH ×2 (09:35→21:29)
[2017-11-21] MEDS: Saccharomyces boulardii 250 MG CAP PO SCH (09:35)
[2017-11-21 11:02] VITALS: BMI 27.6
[2017-11-21] MEDS ORDERED: cefTRIAXone Sodium 1 MG in Syringe 0 ML IVPB SCH (15:00)
[2017-11-21] MEDS ORDERED: Lidocaine 1% (PF) 30 ML VIAL SC SCH (15:15)
[2017-11-21] MEDS ORDERED: Fentanyl 100 MCG/2 ML VIAL SLOW IVP SCH (15:15)
--- NOTE | 2017-11-21 16:39 | PDOC.PN ---
- Subjective Encounter Start Date: 11/21/17 Encounter Start Time: 16:37 Pt seen for followup re: cellulitis. Denies chest pain, shortness of breath, fevers or chills. - Objective MAR Reviewed: Yes Vital Signs & Weight: Vital Signs (12 hours) Temp Pulse Pulse Pulse Resp BP Pulse Ox 11/21/17 13:19 72 81 11/21/17 11:47 99.7 F H 72 18 114/65 96 11/21/17 08:21 99.8 F H 74 16 115/61 92 L 11/21/17 08:00 99.8 F H 74 16 Pulse Ox Pulse Ox 11/21/17 13:19 93 L 91 L 11/21/17 11:47 11/21/17 08:21 11/21/17 08:00 Weight Admit Weight 186 lb 1.6 oz Weight 186 lb 1.6 oz I&O: 11/20/17 11/21/17 11/22/17 06:59 06:59 06:59 Intake Total 180 Balance 180 Result Diagrams: 11/20/17 14:40 11/20/17 14:40 Additional Labs: Labs reviewed by me Phys Exam - Physical Examination Constitutional: NAD HEENT: moist MMs, sclera anicteric, oral pharynx no lesions, 2+ tonsils Neck: no nodes, no JVD, supple, full ROM Respiratory: no wheezing, no rales, no rhonchi, clear to auscultation bilateral Cardiovascular: RRR, no rub S1, S2 Gastrointestinal: soft, non-tender, no distention, positive bowel sounds Neurological: moves all 4 limbs Psychiatric: normal affect Deviation from normal: Oriented to person and place, not to time Deviation from normal: Dressing over right elbow Dx/Plan (1) Cellulitis Code(s): L03.90 - CELLULITIS, UNSPECIFIED Status: Acute Comment: s/p I&D of abscess. Continue IV antibiotics as below. (2) HTN (hypertension) Code(s): I10 - ESSENTIAL (PRIMARY) HYPERTENSION Status: Acute Comment: controlled (3) Leucocytosis Code(s): D72.829 - ELEVATED WHITE BLOOD CELL COUNT, UNSPECIFIED Status: Acute Comment: Likely due to infection, continue IV antibiotics as below and recheck (4) Schizophrenia Code(s): F20.9 - SCHIZOPHRENIA, UNSPECIFIED Status: Chronic Comment: continue home medications - Plan * . Review of Systems - Review of Systems Constitutional: negative: fever, chills, sweats, weakness, malaise Respiratory: negative: Cough, Shortness of Breath, SOB with Excertion, Pleuritic Pain, Wheezing Cardiovascular: negative: chest pain, palpitations, orthopnea, paroxysmal nocturnal dyspnea, edema, light headedness Gastrointestinal: negative: Nausea, Vomiting, Abdominal Pain, Diarrhea, Constipation, Melena, Hematochezia Genitourinary: negative: Dysuria, Frequency, Incontinence, Hematuria, Retention Skin: Rash. negative: Lesions, Leonard, Bruising - Medications/Allergies Allergies/Adverse Reactions: Allergies Allergy/AdvReac Type Severity Reaction Status Date / Time Sulfa (Sulfonamide Allergy Unknown Verified 11/21/17 03:00 Antibiotics) Medications: Current Medications Famotidine (Pepcid) 20 mg PO BID [facility] Last Admin: 11/21/17 09:35 Dose: 20 mg Fentanyl (Sublimaze) 50 mcg SLOW IVP NOW [facility] Stop: 11/21/17 17:15 Last Admin: 11/21/17 15:47 Dose: 50 mcg Vancomycin HCl 1 gm/ Device 200 mls @ 200 mls/hr IVPB 0400,1600 [facility] Last Admin: 11/21/17 04:42 Dose: 200 mls Piperacillin Sod/Tazobactam (Sod 3.375 gm/ Sodium Chloride) 100 mls @ 200 mls/ hr IVPB 0400,1000,1600,2200 [facility] Last Admin: 11/21/17 15:41 Dose: 100 mls Lidocaine HCl (Xylocaine 1% Pf) 30 ml SC NOW [facility] Stop: 11/21/17 17:15 Last Admin: 11/21/17 15:51 Dose: 30 ml Miscellaneous Medication (Pharmacy To Dose) 1 each IVPB ONE PRN PRN Reason: Pharmacy to dose Stop: 11/21/17 18:47 Trifluoperazine Hcl [Trifluoperazine Hcl ] 2mg 1 each PO TID [facility] Flurazepam Hcl [ (Flurazepam Hcl] 15mg) 2 each PO HS [facility] Trihexyphenidyl Hcl [Trihexyphenidyl Hcl ] 2 Mg 1 each PO QAM [facility] Trifluoperazine Hcl [Trifluoperazine Hcl ] 2mg 1 each PO TID [facility] Polyethylene Glycol (Miralax) 17 gm PO DAILY [facility] Last Admin: 11/21/17 09:34 Dose: 17 gm Rosuvastatin Calcium (Crestor) 5 mg PO DAILY [facility] Last Admin: 11/21/17 10:53 Dose: 5 mg Saccharomyces Boulardii (Florastor) 250 mg PO DAILY [facility] Last Admin: 11/21/17 09:35 Dose: 250 mg Senna/Docusate Sodium (Senokot S) 1 tab PO BID [facility] Last Admin: 11/21/17 09:35 Dose: 1 tab
--- NOTE | 2017-11-21 17:56 | PRG ---
DATE OF SERVICE: 11/21/2017 SUBJECTIVE: Abel was admitted for cellulitis of the right elbow emanating from an olecranon bursitis. We are consulted and apparently his erythema has not improved significantly with administration of IV antibiotics over the last 24 hours. OBJECTIVE: VITAL SIGNS: Temperature 99.7, pulse 72, respiratory rate 18, O2 saturation on room air is 96%, puls e rate 81, and blood pressure 114/65. GENERAL: He is alert and oriented to person, place, time, and situation. Grossly nonfocal. EXTREMITIES: Visual inspection of the right upper extremity demonstrates him to indeed have erythema tous appearing olecranon bursa on the right elbow. Range of motion is adequate, but is limited with discomfort. He has also some purulent drainage out of the olecranon bursa has full flexion able to e xpress fluid. Fair amount of edema is also accompanies the abscess which extends up the brachium pos teriorly and has the appearance of orange peel doubling on the skin. ASSESSMENT: Right elbow septic olecranon bursitis, symptomatic persistent. PLAN: Bedside I&D will be performed today. Please see procedure note.
[2017-11-21] MEDS: TRIHEXYPHENIDYL HCL 2 MG PO SCH (18:53)
[2017-11-21] MEDS: FLURAZEPAM HCL 15 MG PO SCH ×2 (19:19→21:30)
[2017-11-21] MEDS: TRIFLUOPERAZINE HCL 2 MG PO SCH ×3 (19:20→23:27)
--- NOTE | 2017-11-21 20:56 | OP ---
DATE OF PROCEDURE: 11/21/2017 PREPROCEDURE DIAGNOSIS: Septic (culture positive Staphylococcus aureus right elbow septic bursitis). POSTPROCEDURE DIAGNOSIS: Septic (culture positive Staphylococcus aureus right elbow septic bursitis) . PROCEDURILST: Jostin Domínguez PA-C. ANESTHESIA: Fentanyl 50 mcg IV, accompanied with a 1% Xylocaine local skin wheal. FINDINGS: A 5-7 mL of purulent hemorrhagic fluid upon entering the bursa as well as a well-defined c avity in the subdermal space and extracapsular in nature. Also, intra-cavital finding suggestive of a little chronicity of the bursitis. DRAINS: None. SPECIMENS: None. COMPLICATIONS: None. COUNTS: Correct. INDICATIONS FOR SURGERY: Abel is an 82-year-old white male who has had persistent erythema, redness a nd swelling and discomfort of the right elbow. He has had a culture positive Staph aureus from the rainage and has had a persistent draining wound. Therefore, he was elected to proceed with bedside i ncision, drainage, washout, exploration, and packing of his right olecranon bursa. PROCEDURE IN DETAIL: After informed consent was obtained, the patient was positioned appropriately i n the left lateral decubitus position. A pillow was placed under the right elbow and is maintained i n a flexed position. The right elbow was then prepped and draped in usual sterile fashion. A 1% ski n wheal anesthesia was obtained in and around the abscess site and just above the drainage site. Onc e this was completed, a 10 blade was then used to incise directly over the olecranon and down to the persistent drain hole. I was able to open the olecranon bursal cavity with a hemostat. Blunt digita l dissection was then carried out underneath this to exploring the recesses of the cavity itself, whi ch appeared to be approximately 6 x 6 in total area. The cavity was then explored and expressed had purulence and hemorrhagic fluid expressed immediately. This was irrigated copiously and then packed with half-inch iodoform gauze. Sterile dressing was applied. The procedure was terminated without a ny complications. He remained stable throughout the procedure. We will recheck in morning.
[2017-11-22 04:25] LABS: Vancomycin, Trough 8.8 ug/mL
[2017-11-22] MEDS: Piperacillin/Tazobactam 3.375 GM in Sodium Chloride 0.9% 100 ML IVPB SCH ×4 (04:43→21:19)
[2017-11-22] MEDS ORDERED: Vancomycin HCl 1.5 GM in Sodium Chloride 0.9% 250 ML 300 ML IVPB SCH (05:00)
[2017-11-22] MEDS: Vancomycin HCl 1 GM in Premix Bag 1 BAG IVPB SCH (05:04)
[2017-11-22] MEDS ORDERED: Acetaminophen 500 MG TAB PO PRN (07:54)
[2017-11-22 08:19] LABS: #Basophils 0.1 thou/uL (0.0-0.2); #Eosinphils 0.2 thou/uL (0.0-0.7); #Lymphocytes 1.9 thou/uL (1.20-3.40); #Monocytes 1.4 thou/uL (0.11-0.59); #Neutrophils 10.6 thou/uL (1.40-6.50); %Basophils 0.4 % (0.0-1.0); %Eosinophils 1.3 % (0.0-10.0); %Lymphocytes 13.1 % (21.0-51.0); %Monocytes 9.9 % (0.0-10.0); %Neutrophils 75.3 % (42.0-75.0); Hemoglobin 13.1 g/dL (14.0-18.0); Mean Corpuscular HGB CONC 34.2 g/dL (32.0-36.0); Mean Corpuscular Hemoglobin 33.2 pg (27.0-31.0); Mean Corpuscular Volume 97.1 fL (78.0-98.0); Mean Platelet Volume 6.2 fL (7.4-10.4); Platelet Count 291 thou/uL (130-400); RBC Distribution Width 11.5 % (11.5-14.5); Red Blood Cell (RBC) Count 3.93 mill/uL (4.70-6.10); White Blood Cell (WBC) Count 14.1 thou/uL (4.8-10.8)
[2017-11-22] MEDS: Polyethylene Glycol 3350 17 GM Packet PO SCH (08:35)
[2017-11-22] MEDS: Saccharomyces boulardii 250 MG CAP PO SCH (08:35)
[2017-11-22] MEDS: Famotidine 20 MG TAB PO SCH ×2 (08:35→21:18)
[2017-11-22] MEDS: Senokot S 8.6-50 MG TAB PO SCH ×2 (08:35→21:18)
[2017-11-22] MEDS: TRIFLUOPERAZINE HCL 2 MG PO SCH ×3 (08:36→21:17)
[2017-11-22 08:39] LABS: Anion Gap 10 mmol/L (10-20); BUN (Urea Nitrogen) 12 mg/dL (8.4-25.7); Calc. Creatinine Clearance 91 mL/min (70-130); Calcium 8.6 mg/dL (7.8-10.44); Carbon Dioxide 32 mmol/L (23-31); Chloride 97 mmol/L (98-107); Estimated GFR-MDRD Greater than 90; Glucose 146 mg/dL (83-110); Potassium 3.9 mmol/L (3.5-5.1); Sodium 135 mmol/L (136-145)
[2017-11-22] MEDS: Atenolol 50 MG TAB PO SCH (10:19)
[2017-11-22] MEDS: TRIHEXYPHENIDYL HCL 2 MG PO SCH ×2 (12:31→17:39)
--- NOTE | 2017-11-22 13:49 | PRG ---
DATE OF SERVICE: 11/22/2017 SUBJECTIVE: The patient is seen and examined at bedside. He is sitting and eating his breakfast. T he amount of pain is significantly diminished in his elbow. He had incision and drainage yesterday d one. OBJECTIVE: VITAL SIGNS: Blood pressure is 144/74, pulse is 84, respiratory rate is 16, temperature is 98.9, O2 saturation is 94% on 2 liters by nasal cannula. HEENT: His head is atraumatic, normocephalic. Eyes PERRLA. Conjunctivae pinkish. Oral mucosa is m oist. NECK: Supple. LUNGS: Clear. ABDOMEN: Soft, nontender. EXTREMITIES: A 1+ peripheral edema similar bilaterally. Right elbow is dressed. NEUROLOGIC: He is alert and oriented x4. There is not any motor deficits. LABORATORY DATA: Showed a white count of 14.1, hemoglobin 13.1, hematocrit 38.2, platelet count 291, 000. Chemistry showed sodium of 135, potassium 3.9, chloride 97, BUN 12, creatinine 0.76. MICROBIOLOGY: Specimen from the right elbow is growing MRSA sensitive to vancomycin, Zosyn and rifam pin. PLAN: The patient will continue on IV vancomycin. He will need a wound VAC, which will be done daniel rrow and for now, we will continue his current regimen. He seems to be clinically more stable.
[2017-11-22] MEDS: Vancomycin HCl 1.5 GM in Sodium Chloride 0.9% 250 ML 300 ML IVPB SCH (17:36)
[2017-11-22] MEDS: FLURAZEPAM HCL 15 MG PO SCH (21:17)
[2017-11-22] MEDS: Atorvastatin Calcium 10 MG TAB PO SCH (21:18)
[2017-11-23] MEDS: Piperacillin/Tazobactam 3.375 GM in Sodium Chloride 0.9% 100 ML IVPB SCH (04:15)
[2017-11-23] MEDS: Vancomycin HCl 1.5 GM in Sodium Chloride 0.9% 250 ML 300 ML IVPB SCH ×2 (05:25→17:05)
[2017-11-23] MEDS: Famotidine 20 MG TAB PO SCH ×2 (08:03→20:57)
[2017-11-23] MEDS: TRIFLUOPERAZINE HCL 2 MG PO SCH ×3 (08:03→20:58)
[2017-11-23] MEDS: Polyethylene Glycol 3350 17 GM Packet PO SCH (08:03)
[2017-11-23] MEDS: Senokot S 8.6-50 MG TAB PO SCH ×2 (08:03→20:57)
[2017-11-23] MEDS: Saccharomyces boulardii 250 MG CAP PO SCH (08:03)
[2017-11-23] MEDS: Atenolol 50 MG TAB PO SCH (08:04)
[2017-11-23] MEDS: TRIHEXYPHENIDYL HCL 2 MG PO SCH ×2 (11:39→17:05)
[2017-11-23 15:29] LABS: Vancomycin, Trough 14.1 ug/mL
[2017-11-23] MEDS: FLURAZEPAM HCL 15 MG PO SCH (20:57)
[2017-11-23] MEDS: Atorvastatin Calcium 10 MG TAB PO SCH (20:58)
[2017-11-24] MEDS ORDERED: Lorazepam 2 MG/ML VIAL SLOW IVP SCH (02:00)
[2017-11-24] MEDS: Vancomycin HCl 1.5 GM in Sodium Chloride 0.9% 250 ML 300 ML IVPB SCH (03:19)
[2017-11-24 07:52] VITALS: BP 138/73; TEMP 98.2
[2017-11-24 08:08] LABS: #Eosinphils 0.2 thou/uL (0.0-0.7); #Lymphocytes 1.1 thou/uL (1.20-3.40); #Monocytes 0.9 thou/uL (0.11-0.59); #Neutrophils 9.5 thou/uL (1.40-6.50); %Basophils 0.3 % (0.0-1.0); %Eosinophils 1.4 % (0.0-10.0); %Lymphocytes 9.7 % (21.0-51.0); %Monocytes 7.8 % (0.0-10.0); %Neutrophils 80.9 % (42.0-75.0); Hemoglobin 12.6 g/dL (14.0-18.0); Mean Corpuscular HGB CONC 35.1 g/dL (32.0-36.0); Mean Corpuscular Hemoglobin 34.2 pg (27.0-31.0); Mean Corpuscular Volume 97.4 fL (78.0-98.0); Mean Platelet Volume 7.3 fL (7.4-10.4); Platelet Count 308 thou/uL (130-400); RBC Distribution Width 11.5 % (11.5-14.5); Red Blood Cell (RBC) Count 3.68 mill/uL (4.70-6.10); White Blood Cell (WBC) Count 11.7 thou/uL (4.8-10.8)
[2017-11-24 08:27] LABS: Anion Gap 9 mmol/L (10-20); BUN (Urea Nitrogen) 12 mg/dL (8.4-25.7); Calc. Creatinine Clearance 83 mL/min (70-130); Calcium 8.8 mg/dL (7.8-10.44); Carbon Dioxide 32 mmol/L (23-31); Chloride 100 mmol/L (98-107); Estimated GFR-MDRD 89; Glucose 207 mg/dL (83-110); Magnesium 2.2 mg/dL (1.6-2.6); Potassium 3.6 mmol/L (3.5-5.1); Sodium 137 mmol/L (136-145)
[2017-11-24] MEDS ORDERED: Linezolid 600 MG TAB PO SCH (09:00)
[2017-11-24] MEDS: TRIFLUOPERAZINE HCL 2 MG PO SCH (09:28)
[2017-11-24] MEDS: Atenolol 50 MG TAB PO SCH (09:29)
[2017-11-24] MEDS: Senokot S 8.6-50 MG TAB PO SCH (09:30)
[2017-11-24] MEDS: Polyethylene Glycol 3350 17 GM Packet PO SCH (09:30)
[2017-11-24] MEDS: Famotidine 20 MG TAB PO SCH (09:30)
[2017-11-24] MEDS: Saccharomyces boulardii 250 MG CAP PO SCH (09:30)
[2017-11-24] MEDS: TRIHEXYPHENIDYL HCL 2 MG PO SCH (11:41)
== END 2017-11-24 13:33 | DRG 507 ==
LOC: ERS 14:09 → T4-A 17:48
PROVIDERS: ADMIT Internal Medicine; ATTEND Internal Medicine
PROC: 0R9L0ZZ Drainage of Right Elbow Joint, Open Approach (ICD-10-PCS; principal; 2017-11-21)
DX: M00.021 Staphylococcal arthritis, right elbow (principal); L03.113 Cellulitis of right upper limb; M70.21 Olecranon bursitis, right elbow; I10 Essential (primary) hypertension; F20.9 Schizophrenia, unspecified; G47.00 Insomnia, unspecified; Z88.2 Allergy status to sulfonamides; B95.61 Methicillin susceptible Staphylococcus aureus infection as the cause of diseases classified elsewhere
CPT/HCPCS: 36415; 70450; 71045; 72125; 80048; 80053; 80202; 81003; 82553; 83605; 83735; 83880; 84484; 85025; 85379; 86140; 87040; 87070; 87077; 87086; 87186; 87205; 90471; 90670; 94760; 96365; 96367; G0009; G8978-GP-CK; G8979-GP-CI; J0696; J2001; J2060; J2543; J3010; J3370; J7050

== ENCOUNTER 2018-01-21 16:15 | Inpatient (IN) | payer MEDICARE ==
[2018-01-21 17:00] LABS: #Eosinphils 0.1 thou/uL (0.0-0.7); #Lymphocytes 1.5 thou/uL (1.20-3.40); #Neutrophils 6.7 thou/uL (1.40-6.50); %Basophils 0.2 % (0.0-1.0); %Lymphocytes 15.9 % (21.0-51.0); %Monocytes 10.4 % (0.0-10.0); %Neutrophils 72.6 % (42.0-75.0); Hemoglobin 14.3 g/dL (14.0-18.0); Mean Corpuscular HGB CONC 34.8 g/dL (32.0-36.0); Mean Corpuscular Hemoglobin 33.7 pg (27.0-31.0); Mean Corpuscular Volume 96.9 fL (78.0-98.0); Mean Platelet Volume 6.9 fL (7.4-10.4); Platelet Count 284 thou/uL (130-400); RBC Distribution Width 12.2 % (11.5-14.5); Red Blood Cell (RBC) Count 4.26 mill/uL (4.70-6.10); White Blood Cell (WBC) Count 9.3 thou/uL (4.8-10.8)
--- NOTE | 2018-01-21 17:20 | RAD ---
FOUR VIEWS RIGHT ELBOW: 01/21/18 HISTORY: Right elbow pain. Patient hit elbow on refrigerator two days ago. COMPARISON: 11/17/17. FINDINGS: Again noted is the prominent olecranon enthesophyte with overlying soft tissue prominence. The lucenc ies seen in the region of soft tissue density have resolved. However, there is now irregularity and l ucencies involving the enthesophyte which could be related to osteomyelitis. No definite fracture is seen, and there is no evidence of a dislocation. There is capsular distention seen anteriorly, and th ere is subcutaneous soft tissue swelling at the medial aspect of the elbow. No other interval change. IMPRESSION: 1. Irregularity of the previously seen prominent olecranon enthesophyte with areas of lucency an d suggestion of minimal periosteal reaction dorsally. The overlying soft tissue prominence is again s een. Findings could be related to infection involving the olecranon bursa and osteomyelitis involving the enthesophyte. Findings also could potentially be related to fracture of indeterminate age, altho ugh this has certainly developed since the prior exam. MRI elbow is suggested. 2. No fracture is seen, and there is no dislocation. 3. Mild capsular distention anteriorly suggesting joint effusion. Code T POS: [facility]
[2018-01-21 17:27] LABS: ALT (SGPT) 12 U/L (8-55); AST (SGOT) 13 U/L (5-34); Albumin 3.7 g/dL (3.4-4.8); Alkaline Phosphatase 96 U/L (40-150); Anion Gap 12 mmol/L (10-20); BUN (Urea Nitrogen) 16 mg/dL (8.4-25.7); Bilirubin, Total 0.6 mg/dL (0.2-1.2); Calc. Creatinine Clearance 0 mL/min (70-130); Calcium 9.6 mg/dL (7.8-10.44); Carbon Dioxide 27 mmol/L (23-31); Chloride 103 mmol/L (98-107); Estimated GFR-MDRD 77; Globulin 3.4 g/dL (2.4-3.5); Glucose 115 mg/dL (83-110); Potassium 3.9 mmol/L (3.5-5.1); Protein, Total 7.1 g/dL (5.8-8.1); Sodium 138 mmol/L (136-145)
[2018-01-21] MEDS ORDERED: cefTRIAXone\\ROCEPHIN 2 GM VIAL ONE (18:46)
[2018-01-21 19:02] LABS: Bilirubin Negative (Negative); Blood, Urine Negative (Negative); Clarity CLEAR (Clear); Glucose, Urine (Dipstick) Negative (Negative); Leukocyte Negative (Negative); Nitrite Negative (Negative); Protein, Urine (Dipstick) Negative (Neg-Trace); Specific Gravity, Urine 1.006 (1.002-1.036); Urobilinogen 0.2 mg/dL (0.2-1.0)
[2018-01-21 22:27] VITALS: BMI 24.7
[2018-01-21] MEDS: Atorvastatin Calcium 10 MG TAB PO SCH (23:03)
[2018-01-21] MEDS: Docusate 100 MG CAP PO SCH (23:03)
[2018-01-21] MEDS: Senokot S 8.6-50 MG TAB PO SCH (23:03)
[2018-01-21] MEDS: Sodium Chloride 0.9% 1,000 ML IV SCH (23:03)
[2018-01-21] MEDS: Famotidine 20 MG TAB PO SCH (23:03)
--- NOTE | 2018-01-22 03:10 | HP ---
CHIEF COMPLAINT: Right elbow pain. HISTORY OF PRESENT ILLNESS: Patient is a very pleasant 82-year-old male with a history of septic carmen nt of his right elbow, who presents to the hospital with worsening pain of the right elbow. Patient stated that he bumped his right elbow at the refrigerator. The next day, it swelled up significantly . Patient denies any fevers or chills; however, stated that when the [facility], she noticed that right elbow was significantly swollen and red. At this time, she did dr mynor palma and the stated that she did take a culture and then told him to come into the ER for fu rther evaluation. PAST MEDICAL HISTORY: History of right, hypertension, schizophrenia, insomnia and also right elbow s eptic joint. PAST SURGICAL HISTORY: Hydrocele removal, appendectomy, cholecystectomy, and also I&D of the right e lbow. FAMILY HISTORY: Denies any family history of heart disease or cancer. ALLERGIES: Allergic to SULFA, unable to recall the reaction. HOME MEDICATIONS: This is per the discharge list that the last medication he takes trihexyphenidyl 0 .5 t.i.d. trifluoperazine one p.o. t.i.d., Senokot one b.i.d., Crestor 5 mg daily, flurazepam 2 caps at bedtime, Pepcid 20 b.i.d., atorvastatin 10 daily, Florastor 250 p.o. daily and atenolol 10 mg p.o . daily and Tylenol q.6. p.r.n. There are also antibiotics that I do not think he takes it anymore. REVIEW OF SYSTEMS: All negative except the ones mentioned above in the HPI. PHYSICAL EXAMINATION: As following: VITAL SIGNS: Temperature of 97.0, 100% room air, 16, 177/79, 70. GENERAL: He is awake, alert, oriented x3, does not appear in distress. CARDIOVASCULAR: S1, S2 present. No murmurs, rubs or gallops. ABDOMEN: Soft, nontender. Bowel sounds are present. EXTREMITIES: No edema. Pedal pulses present x2. His right elbow has significant erythema and he do es have a small site where he has got serosanguineous drainage that is noted. NEUROLOGIC: No focal deficits noted. LABORATORY DATA: As of the following: WBC of 9.3, hemoglobin of 14.3, hematocrit 41.3, platelets of 284. Chemistry: Sodium 138, potassium of 3.9, BUN of 16, creatinine 0.94. His urine appears to be normal. He did have an x-ray of the right elbow, which indicated irregularity on the previous seen prominent olecranon and with areas of lucency and suggestion of minimal periosteal reaction gary lalo. The other overlying soft tissue prominence is again seen. The finding could be related to in fection involving the olecranon bursa and osteomyelitis in the regions of the findings also cou ld potentially be related to fracture of indeterminate age and some mild capsular distention and join t effusion. ASSESSMENT AND PLAN: 1. The patient is a very pleasant 82-year-old male who comes into the hospital with erythema of the right elbow. 2. Worsening right elbow cellulitis. This could also be septic joint. We will start patient on IV antibiotics. Based on the last cultures, he did have methicillin-resistant Staphylococcus aureus. W e will start patient on antibiotics for now. Also, we will consult orthopedics and the patient may a lso need an Infectious Disease consult and continue to monitor. 3. Hypertension. We will continue his home medication. 4. History of schizophrenia. We will continue his home medication. 5. Deep venous thrombosis prophylaxis. We will put the patient on sequential compression devices.
[2018-01-22 04:35] LABS: Anion Gap 11 mmol/L (10-20); BUN (Urea Nitrogen) 16 mg/dL (8.4-25.7); Calc. Creatinine Clearance 73 mL/min (70-130); Calcium 8.8 mg/dL (7.8-10.44); Carbon Dioxide 26 mmol/L (23-31); Chloride 105 mmol/L (98-107); Estimated GFR-MDRD 87; Glucose 147 mg/dL (83-110); Potassium 3.4 mmol/L (3.5-5.1); Sodium 139 mmol/L (136-145)
[2018-01-22 04:50] LABS: Band 9 % (5-11); Hemoglobin 12.8 g/dL (14.0-18.0); Hypochromia SLIGHT = 6-15 cells (100X) (0-5/hpf); Lymphocytes 1 % (21-51); MDiff Complete? YES; Mean Corpuscular HGB CONC 35.1 g/dL (32.0-36.0); Mean Corpuscular Hemoglobin 33.9 pg (27.0-31.0); Mean Corpuscular Volume 96.6 fL (78.0-98.0); Mean Platelet Volume 7.2 fL (7.4-10.4); Monocytes 7 % (0-10); Neutrophil 83 % (42-75); PLT Morphology Comment Appears Adequate; Platelet Count 206 thou/uL (130-400); RBC Distribution Width 12.4 % (11.5-14.5); Red Blood Cell (RBC) Count 3.76 mill/uL (4.70-6.10); White Blood Cell (WBC) Count 18.7 thou/uL (4.8-10.8)
[2018-01-22] MEDS: Polyethylene Glycol 3350 17 GM Packet PO SCH (08:00)
[2018-01-22] MEDS: Senokot S 8.6-50 MG TAB PO SCH ×2 (08:00→20:03)
[2018-01-22] MEDS: Rosuvastatin 5 MG TAB PO SCH (08:00)
[2018-01-22] MEDS: Trihexyphenidyl 2 MG TAB PO SCH ×4 (08:00→18:27)
[2018-01-22] MEDS: Famotidine 20 MG TAB PO SCH ×2 (08:00→20:03)
[2018-01-22] MEDS: Docusate 100 MG CAP PO SCH ×2 (08:00→20:03)
[2018-01-22] MEDS: Vancomycin HCl 1 GM in Premix Bag 1 BAG IVPB SCH ×2 (08:00→20:02)
[2018-01-22] MEDS ORDERED: Vancomycin HCl 1.5 GM in Sodium Chloride 0.9% 250 ML 300 ML IVPB SCH (09:00)
[2018-01-22] MEDS: Enoxaparin Sodium 40 MG/0.4 ML SYRINGE SC SCH (11:54)
--- NOTE | 2018-01-22 13:51 | PDOC.PN ---
- Subjective Encounter Start Date: 01/22/18 Encounter Start Time: 13:50 Subjective: feels OK. denies much pain in Left elbow. -: wound checked w WC team. -: denies any F/C.no CP/SOB/Abd pain/diarrhea - Objective Resuscitation Status: Resuscitation Status FULL:Full Resuscitation MAR Reviewed: Yes Vital Signs & Weight: Vital Signs (12 hours) Temp Pulse Resp BP BP Pulse Ox 01/22/18 08:00 97.6 F 81 20 94 L 01/22/18 07:26 97.6 F 81 20 138/92 H 94 L 01/22/18 04:00 99.0 F 90 18 123/65 90 L Weight Weight 167 lb 15.876 oz I&O: 01/21/18 01/22/18 01/23/18 06:59 06:59 06:59 Intake Total 800 Output Total 400 Balance 400 Result Diagrams: 01/22/18 04:04 01/22/18 04:04 Additional Labs: Microbiology 01/21/18 16:51 Venous blood - Left Arm Blood Culture - Preliminary Specimen has been received and culture in progress. No Growth to date. 01/21/18 16:50 Venous blood - Right Hand Blood Culture - Preliminary Specimen has been received and culture in progress. No Growth to date. Phys Exam - Physical Examination Constitutional: NAD HEENT: PERRLA, moist MMs, sclera anicteric, oral pharynx no lesions Neck: no nodes, no JVD, supple, full ROM Respiratory: no wheezing, no rales, no rhonchi, clear to auscultation bilateral Cardiovascular: RRR, no significant murmur, no rub Gastrointestinal: soft, non-tender, no distention, positive bowel sounds Musculoskeletal: no edema, pulses present left elbow wound w tracking depper to bone w Purulent Discharge Neurological: non-focal, normal sensation, moves all 4 limbs Psychiatric: normal affect, A&O x 3 Skin: no rash, normal turgor, cap refill <2 seconds Dx/Plan (1) Septic arthritis of elbow Code(s): M00.9 - PYOGENIC ARTHRITIS, UNSPECIFIED Status: Acute Qualifiers: Laterality: right (2) Leucocytosis Code(s): D72.829 - ELEVATED WHITE BLOOD CELL COUNT, UNSPECIFIED Status: Acute Comment: Likely due to infection, continue IV antibiotics as below and recheck (3) HTN (hypertension) Code(s): I10 - ESSENTIAL (PRIMARY) HYPERTENSION Status: Chronic Comment: controlled (4) Schizophrenia Code(s): F20.9 - SCHIZOPHRENIA, UNSPECIFIED Status: Chronic Comment: continue home medications - Plan continue antibiotics, PT/OT, DVT proph w/SCDs Cont braod spectrum IV ABx.follow Cx -: Likley I&D required.Ortho consulted & bedside Debridment done.follow Cx -: start diet. -: HD stable. restart home meds w BP monitoring -: am labs. ID recs requested.Replace and recheck Potassium * . Review of Systems - Review of Systems Constitutional: weakness, malaise. negative: fever, chills, sweats, other ENT: negative: Ear Pain, Ear Discharge, Nose Pain, Nose Discharge, Nose Congestion, Mouth Pain, Mouth Swelling, Throat Pain, Throat Swelling, Other Respiratory: negative: Cough, Dry, Shortness of Breath, Hemoptysis, SOB with Excertion, Pleuritic Pain, Sputum, Wheezing Cardiovascular: negative: chest pain, palpitations, orthopnea, paroxysmal nocturnal dyspnea, edema, light headedness, other Gastrointestinal: negative: Nausea, Vomiting, Abdominal Pain, Diarrhea, Constipation, Melena, Hematochezia, Other Genitourinary: negative: Dysuria, Frequency, Incontinence, Hematuria, Retention , Other Musculoskeletal: negative: Neck Pain, Shoulder Pain, Arm Pain, Back Pain, Hand Pain, Leg Pain, Foot Pain, Other Neurological: negative: Weakness, Numbness, Incoordination, Change in Speech, Confusion, Seizures, Other - Medications/Allergies Allergies/Adverse Reactions: Allergies Allergy/AdvReac Type Severity Reaction Status Date / Time Sulfa (Sulfonamide Allergy Unknown Verified 01/21/18 22:22 Antibiotics) Medications: Current Medications Atorvastatin Calcium (Lipitor) 10 mg PO HS [facility] Last Admin: 01/21/18 23:03 Dose: 10 mg Docusate Sodium (Colace) 100 mg PO BID [facility] Last Admin: 01/22/18 08:00 Dose: Not Given Enoxaparin Sodium (Lovenox) 40 mg SC 0900 [facility] Famotidine (Pepcid) 20 mg PO BID [facility] Last Admin: 01/22/18 08:00 Dose: Not Given Sodium Chloride (Normal Saline 0.9%) 1,000 mls @ 75 mls/hr IV .[id number] [facility] Last Admin: 01/21/18 23:03 Dose: 1,000 mls Vancomycin HCl 1 gm/ Device 200 mls @ 200 mls/hr IVPB Q12HR [facility] Last Admin: 01/22/18 08:00 Dose: 200 mls Miscellaneous Medication (Pharmacy To Dose) 0 each IVPB PRN PRN PRN Reason: [facility] Pharmacy to Dose Non-Formulary Medication (Flurazepam Hcl [Flurazepam Hcl]) 2 capsule PO [facility] Non-Formulary Medication (Trifluoperazine Hcl [Trifluoperazine Hcl]) 1 tablet PO TID [facility] Polyethylene Glycol (Miralax) 17 gm PO DAILY [facility] Last Admin: 01/22/18 08:00 Dose: Not Given Rosuvastatin Calcium (Crestor) 5 mg PO DAILY [facility] Last Admin: 01/22/18 08:00 Dose: Not Given Senna/Docusate Sodium (Senokot S) 1 tab PO BID [facility] Last Admin: 01/22/18 08:00 Dose: Not Given Sodium Chloride (Flush - Normal Saline) 10 ml IVF Q12HR [facility] Last Admin: 01/22/18 08:01 Dose: Not Given Sodium Chloride (Flush - Normal Saline) 10 ml IVF PRN PRN PRN Reason: Saline Flush Trihexyphenidyl HCl (Artane) 1 mg PO TID-[facility] Last Admin: 01/22/18 08:00 Dose: Not Given
[2018-01-22] MEDS: Sodium Chloride 0.9% 1,000 ML IV SCH (15:36)
--- NOTE | 2018-01-22 17:31 | CON ---
DATE OF CONSULTATION: 01/22/2018 HISTORY OF PRESENT ILLNESS: Mr. King is an 82-year-old right-handed white male who states that abou t a month ago, he bumped his right elbow, next day had significant swelling. He also had fallen dire ctly on the right elbow. He developed swelling and erythema. The home health nurse came and there w as a small open wound and she drained some of the fluid, cultures were obtained, which subsequently g rew out MRSA. The patient was seen last night and was admitted for the olecranon septic bursitis. PAST MEDICAL HISTORY: Medical Illnesses: History of hypertension, schizophrenia. PAST SURGICAL HISTORY: Hydrocele removal, appendectomy, cholecystectomy, and I&D of the right elbow which was really just at the bedside by the home health nurse. ALLERGIES: SULFA. PHYSICAL EXAMINATION: VITAL SIGNS: Temperature 97.6, pulse 81, respiratory rate 20, blood pressure 138/92. The patient's highest temperature was at 4:00 this morning at 99. EXTREMITIES: Examination of the right elbow, the patient is able to flex and extend the right elbow, without pain. There is some erythema, but very little swelling over the posterior aspect of the elb ow over the olecranon bursa. There is some bloody type drainage from a small open wound. There is s ome swelling and erythema on the ulnar aspect of the proximal forearm. The right upper extremity is neurovascularly intact. IMAGING: X-rays of the right elbow shows no significant degenerative changes. There is a bony react ion over the olecranon which appears some type of bony reaction. There is some early callus formatio n from possibly fracture of the tip of the olecranon. IMPRESSION: Septic olecranon bursitis with cellulitis into the forearm. PLAN: The wound is open and draining. The patient is receiving IV antibiotics. Dr. Pederson, Infectio us Disease doctor taking care of the IV antibiotics. This should get better without any further surg onelia, all is following.
--- NOTE | 2018-01-22 18:29 | CON ---
DATE OF CONSULTATION: 01/22/2018 REASON FOR CONSULTATION: Olecranon bursitis. HISTORY OF PRESENT ILLNESS: An 82-year-old with history of hypertension, schizophrenia, who fell at home previously and injured his elbow and since then has had an inflammatory process. The patient underwent surgical debridement on 11/21/2017 by Jostin Domínguez. At that time, cultures yielded MRSA in 3 different specimens. The patient had elbow films done on 11/16/2017, which showed capsular distention of cortical irregularity of the elbow, and 2 days later a repeat elbow x-ray showed small amount of joint fluid, but no acute osseous abnormality and at this time there is irregularity of the previously seen prominent likely intensified areas of lucency and minimal periosteal reaction dorsally. Currently, he is feeling well. He denies headaches, visual symptoms, sore throat, odynophagia or dysphagia, no dyspnea or chest pain. Mild pain in the right elbow. No abdominal pain or diarrhea, genitourinary symptoms, no joint symptoms outside the area of involvement. PAST MEDICAL HISTORY: Hypertension, schizophrenia, episode of fall. PAST SURGICAL HISTORY: Hydrocele removal, appendectomy, cholecystectomy, I&D of right elbow in November. FAMILY HISTORY: Noncontributory. ALLERGIES: SULFA DRUGS. CURRENT MEDICATIONS: Lipitor, Colace, Lovenox, Pepcid, flurazepam, trifluoperazine, MiraLAX, Klor-Con, Senokot, vancomycin and Artane. PHYSICAL EXAMINATION: VITAL SIGNS: T-max 99.0, currently 97.6. Other vital signs not remarkable. SKIN: Remarkable for the area of ulceration in the right elbow lateral aspect with surrounding erythema patch measuring about 5-6 cm. Peripheral IV access. No lymphadenopathy. HEENT: Ocular movements conjugate. Oral cavity normal. NECK: Supple. LUNGS: Symmetric clear breath sounds. HEART: S1, S2, regular rate. No S3 or S4. ABDOMEN: Soft, not distended or tender. No ascites. No bladder distention. EXTREMITIES: No other joint inflammatory process noted. Pulses 1+ in dorsalis pedis. NEUROLOGIC: Nonfocal. LABORATORY DATA: White cell count is 9.3 and 18.7, hemoglobin 12.8, platelets 208 with 82% neutrophils. Sodium 138, creatinine 0.94. Urinalysis was normal. Microbiology as noted before with MRSA, LINDEN for vancomycin was 1. Susceptible to tetracycline, rifampin, linezolid, doxycycline and the radiology studies as submitted above. ASSESSMENT: Schizophrenia falls, injury to the right elbow in October with inflammatory process which developed and was treated in November now seems to be associated with persistence with evidence of olecranon osteomyelitis. Septic arthritis is not ruled out. At this point, we will switch him to IV vancomycin and continue treatment for a protracted period of time. PICC line placement, monitor CRP, CBC, vancomycin trough, and clinical progress. Follow up plain films of the elbow area. The elbow area is notoriously difficult to heal sometimes because of the angulated shape and the mobility of the elbow and he may require complete resection of the bursa, sometimes debridement of the tip of the olecranon and primary closure. We will see how he progresses. JUANITA
[2018-01-22] MEDS: Atorvastatin Calcium 10 MG TAB PO SCH (20:02)
[2018-01-22] MEDS: FLURAZEPAM HCL 15 MG PO SCH (20:02)
[2018-01-23 04:17] LABS: #Basophils 0.1 thou/uL (0.0-0.2); #Eosinphils 0.4 thou/uL (0.0-0.7); #Lymphocytes 1.5 thou/uL (1.20-3.40); #Neutrophils 4.5 thou/uL (1.40-6.50); %Basophils 0.7 % (0.0-1.0); %Eosinophils 5.2 % (0.0-10.0); %Lymphocytes 20.4 % (21.0-51.0); %Monocytes 13.4 % (0.0-10.0); %Neutrophils 60.3 % (42.0-75.0); Hemoglobin 11.7 g/dL (14.0-18.0); Mean Corpuscular HGB CONC 35.2 g/dL (32.0-36.0); Mean Corpuscular Hemoglobin 34.4 pg (27.0-31.0); Mean Corpuscular Volume 97.7 fL (78.0-98.0); Mean Platelet Volume 7.1 fL (7.4-10.4); Platelet Count 168 thou/uL (130-400); RBC Distribution Width 12.4 % (11.5-14.5); Red Blood Cell (RBC) Count 3.41 mill/uL (4.70-6.10); White Blood Cell (WBC) Count 7.5 thou/uL (4.8-10.8)
[2018-01-23 04:36] LABS: Anion Gap 10 mmol/L (10-20); BUN (Urea Nitrogen) 16 mg/dL (8.4-25.7); Calc. Creatinine Clearance 78 mL/min (70-130); Calcium 8.4 mg/dL (7.8-10.44); Carbon Dioxide 24 mmol/L (23-31); Chloride 109 mmol/L (98-107); Estimated GFR-MDRD Greater than 90; Glucose 95 mg/dL (83-110); Potassium 3.6 mmol/L (3.5-5.1); Sodium 139 mmol/L (136-145)
[2018-01-23] MEDS: Sodium Chloride 0.9% 1,000 ML IV SCH (05:50)
[2018-01-23 08:36] LABS: Vancomycin, Trough 11.9 ug/mL
[2018-01-23] MEDS: Rosuvastatin 5 MG TAB PO SCH (09:52)
[2018-01-23] MEDS: Trihexyphenidyl 2 MG TAB PO SCH ×3 (09:53→18:06)
[2018-01-23] MEDS: Senokot S 8.6-50 MG TAB PO SCH ×2 (09:53→20:41)
[2018-01-23] MEDS: Famotidine 20 MG TAB PO SCH ×2 (09:53→20:41)
[2018-01-23] MEDS: Polyethylene Glycol 3350 17 GM Packet PO SCH (09:53)
[2018-01-23] MEDS: Enoxaparin Sodium 40 MG/0.4 ML SYRINGE SC SCH (09:55)
[2018-01-23] MEDS: Docusate 100 MG CAP PO SCH ×2 (09:56→20:41)
[2018-01-23] MEDS: Vancomycin HCl 1 GM in Premix Bag 1 BAG IVPB SCH (10:12)
[2018-01-23] MEDS: Vancomycin HCl 1.25 GM in Sodium Chloride 0.9% 250 ML 250 ML IVPB SCH ×2 (10:13→21:00)
--- NOTE | 2018-01-23 12:39 | PDOC.PN ---
- Subjective Encounter Start Date: 01/23/18 Encounter Start Time: 12:38 Subjective: feels much better. -: no F/C.no elbow pain -: c/o urinating frequently - Objective Resuscitation Status: Resuscitation Status FULL:Full Resuscitation MAR Reviewed: Yes Vital Signs & Weight: Vital Signs (12 hours) Temp Pulse Resp BP Pulse Ox 01/23/18 08:00 98.1 F 88 18 166/79 H 95 Weight Admit Weight 167 lb 15.876 oz Weight 167 lb 15.876 oz I&O: 01/22/18 01/23/18 01/24/18 06:59 06:59 06:59 Intake Total 800 2828 Output Total 400 875 Balance 400 1953 Result Diagrams: 01/23/18 03:55 01/23/18 03:55 Additional Labs: Microbiology 01/22/18 13:12 Elbow - Fluid Bacterial Culture - Preliminary Staphylococcus aureus 01/21/18 16:51 Venous blood - Left Arm Blood Culture - Preliminary Specimen has been received and culture in progress. No Growth to date. 01/21/18 16:50 Venous blood - Right Hand Blood Culture - Preliminary Specimen has been received and culture in progress. No Growth to date. Phys Exam - Physical Examination Constitutional: NAD HEENT: PERRLA, moist MMs, sclera anicteric, oral pharynx no lesions Neck: no nodes, no JVD, supple, full ROM Respiratory: no wheezing, no rales, no rhonchi, clear to auscultation bilateral Cardiovascular: RRR, no significant murmur, no rub Gastrointestinal: soft, non-tender, no distention, positive bowel sounds Musculoskeletal: no edema, pulses present Neurological: non-focal, normal sensation, moves all 4 limbs Psychiatric: normal affect, A&O x 3 Skin: no rash Dx/Plan (1) Septic arthritis of elbow Code(s): M00.9 - PYOGENIC ARTHRITIS, UNSPECIFIED Status: Acute Qualifiers: Laterality: right Comment: s/p I&D 12/22/17 (2) Leucocytosis Code(s): D72.829 - ELEVATED WHITE BLOOD CELL COUNT, UNSPECIFIED Status: Acute Comment: Likely due to infection, continue IV antibiotics as below and recheck (3) HTN (hypertension) Code(s): I10 - ESSENTIAL (PRIMARY) HYPERTENSION Status: Chronic Comment: controlled (4) Schizophrenia Code(s): F20.9 - SCHIZOPHRENIA, UNSPECIFIED Status: Chronic Comment: continue home medications (5) BPH (benign prostatic hyperplasia) Code(s): N40.0 - BENIGN PROSTATIC HYPERPLASIA WITHOUT LOWER URINRY TRACT SYMP Status: Suspected Qualifiers: Lower urinary tract symptom detail: urinary frequency - Plan DVT proph w/SCDs cont IV Vancomycin.gabriela MRSA -: PICC line and OP set up for protracted IV Abx course. -: monitor labs -: check PSA. add flomax,if high -: HD stable. * . Review of Systems - Review of Systems Constitutional: negative: fever, chills, sweats, weakness, malaise, other ENT: negative: Ear Pain, Ear Discharge, Nose Pain, Nose Discharge, Nose Congestion, Mouth Pain, Mouth Swelling, Throat Pain, Throat Swelling, Other Respiratory: negative: Cough, Dry, Shortness of Breath, Hemoptysis, SOB with Excertion, Pleuritic Pain, Sputum, Wheezing Cardiovascular: negative: chest pain, palpitations, orthopnea, paroxysmal nocturnal dyspnea, edema, light headedness, other Gastrointestinal: negative: Nausea, Vomiting, Abdominal Pain, Diarrhea, Constipation, Melena, Hematochezia, Other Genitourinary: negative: Dysuria, Frequency, Incontinence, Hematuria, Retention , Other Musculoskeletal: negative: Neck Pain, Shoulder Pain, Arm Pain, Back Pain, Hand Pain, Leg Pain, Foot Pain, Other Neurological: negative: Weakness, Numbness, Incoordination, Change in Speech, Confusion, Seizures, Other - Medications/Allergies Allergies/Adverse Reactions: Allergies Allergy/AdvReac Type Severity Reaction Status Date / Time Sulfa (Sulfonamide Allergy Unknown Verified 01/21/18 22:22 Antibiotics) Medications: Current Medications Atenolol (Tenormin) 100 mg PO DAILY [facility] Atorvastatin Calcium (Lipitor) 10 mg PO HS [facility] Last Admin: 01/22/18 20:02 Dose: 10 mg Docusate Sodium (Colace) 100 mg PO BID [facility] Last Admin: 01/23/18 09:56 Dose: Not Given Enoxaparin Sodium (Lovenox) 40 mg SC 0900 [facility] Last Admin: 01/23/18 09:55 Dose: 40 mg Famotidine (Pepcid) 20 mg PO BID [facility] Last Admin: 01/23/18 09:53 Dose: 20 mg Vancomycin HCl 1.25 gm/ Sodium (Chloride) 250 mls @ 166.667 mls/hr IVPB 1000, 2200 [facility] Last Admin: 01/23/18 10:13 Dose: 250 mls Miscellaneous Medication (Pharmacy To Dose) 0 each IVPB PRN PRN PRN Reason: [facility] Pharmacy to Dose Flurazepam Hcl 15 Mg (Capsules) 0 each PO HS [facility] Last Admin: 01/22/18 20:02 Dose: 1 each Trifluoperazine Hcl (2 Mg Tab) 0 each PO TID [facility] Last Admin: 01/23/18 10:01 Dose: 1 each [Melatonin Chewable (Tablet] 2.5 Mg) 0 each PO [facility] Polyethylene Glycol (Miralax) 17 gm PO DAILY [facility] Last Admin: 01/23/18 09:53 Dose: Not Given Rosuvastatin Calcium (Crestor) 5 mg PO DAILY [facility] Last Admin: 01/23/18 09:52 Dose: 5 mg Senna/Docusate Sodium (Senokot S) 1 tab PO BID [facility] Last Admin: 01/23/18 09:53 Dose: Not Given Sodium Chloride (Flush - Normal Saline) 10 ml IVF Q12HR [facility] Last Admin: 01/23/18 10:02 Dose: Not Given Sodium Chloride (Flush - Normal Saline) 10 ml IVF PRN PRN PRN Reason: Saline Flush Trihexyphenidyl HCl (Artane) 1 mg PO TID-[facility] Last Admin: 01/23/18 09:53 Dose: 1 mg
[2018-01-23] MEDS: Atorvastatin Calcium 10 MG TAB PO SCH (20:41)
[2018-01-23] MEDS ORDERED: Melatonin 3 MG TAB PO PRN (21:00)
[2018-01-23] MEDS ORDERED: MELATONIN 2.5 MG PO SCH (21:00)
[2018-01-23] MEDS: FLURAZEPAM HCL 15 MG PO SCH (21:59)
[2018-01-24] MEDS: Famotidine 20 MG TAB PO SCH ×2 (08:27→20:12)
[2018-01-24] MEDS: Rosuvastatin 5 MG TAB PO SCH (08:27)
[2018-01-24] MEDS: Trihexyphenidyl 2 MG TAB PO SCH ×3 (08:27→18:00)
[2018-01-24] MEDS: Atenolol 50 MG TAB PO SCH (08:27)
[2018-01-24] MEDS: Enoxaparin Sodium 40 MG/0.4 ML SYRINGE SC SCH (08:28)
[2018-01-24] MEDS: Senokot S 8.6-50 MG TAB PO SCH ×2 (08:30→20:15)
[2018-01-24] MEDS: Polyethylene Glycol 3350 17 GM Packet PO SCH (08:30)
[2018-01-24] MEDS: Docusate 100 MG CAP PO SCH ×2 (08:30→20:09)
[2018-01-24] MEDS ORDERED: Non-Formulary Item 1 EACH (Atenolol [Tenormin] 100 MG) PO SCH (09:00)
--- NOTE | 2018-01-24 12:04 | PDOC.PN ---
- Subjective Encounter Start Date: 01/24/18 Encounter Start Time: 12:03 Subjective: feels better today. no elbow pain.no fever/chills - Objective Resuscitation Status: Resuscitation Status FULL:Full Resuscitation MAR Reviewed: Yes Vital Signs & Weight: Vital Signs (12 hours) Temp Pulse Resp BP BP Pulse Ox 01/24/18 08:27 99 168/85 H 01/24/18 08:00 97.5 F L 99 16 92 L 01/24/18 07:23 97.5 F L 99 16 168/85 H 92 L Weight Admit Weight 167 lb 15.876 oz Weight 167 lb 15.876 oz I&O: 01/23/18 01/24/18 01/25/18 06:59 06:59 06:59 Intake Total 2828 1795 Output Total 875 2125 Balance 1953 -330 Result Diagrams: 01/23/18 03:55 01/23/18 03:55 Additional Labs: Microbiology 01/22/18 13:12 Elbow - Fluid Bacterial Culture - Preliminary Methicillin resistant S.aureus 01/21/18 16:51 Venous blood - Left Arm Blood Culture - Preliminary NO GROWTH AT 48 HOURS 01/21/18 16:50 Venous blood - Right Hand Blood Culture - Preliminary NO GROWTH AT 48 HOURS Phys Exam - Physical Examination Constitutional: NAD HEENT: PERRLA, moist MMs, sclera anicteric, oral pharynx no lesions Neck: no nodes, no JVD, supple, full ROM Respiratory: no wheezing, no rales, no rhonchi, clear to auscultation bilateral Cardiovascular: RRR, no significant murmur Gastrointestinal: soft, non-tender, no distention, positive bowel sounds Musculoskeletal: no edema, pulses present Neurological: non-focal, normal sensation, moves all 4 limbs Psychiatric: normal affect, A&O x 3 Skin: no rash Dx/Plan (1) Septic arthritis of elbow Code(s): M00.9 - PYOGENIC ARTHRITIS, UNSPECIFIED Status: Acute Qualifiers: Laterality: right Comment: s/p I&D 12/22/17.Cx MRSA (2) Leucocytosis Code(s): D72.829 - ELEVATED WHITE BLOOD CELL COUNT, UNSPECIFIED Status: Acute Comment: Likely due to infection, continue IV antibiotics as below and recheck (3) HTN (hypertension) Code(s): I10 - ESSENTIAL (PRIMARY) HYPERTENSION Status: Chronic Comment: controlled (4) Schizophrenia Code(s): F20.9 - SCHIZOPHRENIA, UNSPECIFIED Status: Chronic Comment: continue home medications (5) BPH (benign prostatic hyperplasia) Code(s): N40.0 - BENIGN PROSTATIC HYPERPLASIA WITHOUT LOWER URINRY TRACT SYMP Status: Suspected Qualifiers: Lower urinary tract symptom detail: urinary frequency Comment: PSA high.will start Flomax w OP f/u w urology - Plan continue antibiotics, PT/OT, DVT proph w/SCDs PICC tomorrow w OP set up for IV avnco for protracted time -: OP f/u w ID -: Hemodynamically stable. -: Op wound care. -: likley home in am. * . Review of Systems - Review of Systems Constitutional: negative: fever, chills, sweats, weakness, malaise, other Respiratory: negative: Cough, Dry, Shortness of Breath, Hemoptysis, SOB with Excertion, Pleuritic Pain, Sputum, Wheezing Cardiovascular: negative: chest pain, palpitations, orthopnea, paroxysmal nocturnal dyspnea, edema, light headedness, other Gastrointestinal: negative: Nausea, Vomiting, Abdominal Pain, Diarrhea, Constipation, Melena, Hematochezia, Other Genitourinary: negative: Dysuria, Frequency, Incontinence, Hematuria, Retention , Other Musculoskeletal: negative: Neck Pain, Shoulder Pain, Arm Pain, Back Pain, Hand Pain, Leg Pain, Foot Pain, Other Neurological: negative: Weakness, Numbness, Incoordination, Change in Speech, Confusion, Seizures, Other - Medications/Allergies Allergies/Adverse Reactions: Allergies Allergy/AdvReac Type Severity Reaction Status Date / Time Sulfa (Sulfonamide Allergy Unknown Verified 01/21/18 22:22 Antibiotics) Medications: Current Medications Atenolol (Tenormin) 100 mg PO DAILY [facility] Last Admin: 01/24/18 08:27 Dose: 100 mg Atorvastatin Calcium (Lipitor) 10 mg PO HS [facility] Last Admin: 01/23/18 20:41 Dose: 10 mg Docusate Sodium (Colace) 100 mg PO BID [facility] Last Admin: 01/24/18 08:30 Dose: Not Given Enoxaparin Sodium (Lovenox) 40 mg SC 0900 [facility] Last Admin: 01/24/18 08:28 Dose: 40 mg Famotidine (Pepcid) 20 mg PO BID [facility] Last Admin: 01/24/18 08:27 Dose: 20 mg Vancomycin HCl 1.25 gm/ Sodium (Chloride) 250 mls @ 166.667 mls/hr IVPB 1000, 2200 [facility] Last Admin: 01/23/18 21:00 Dose: 250 mls Melatonin (Melatonin) 3 mg PO HSPRN PRN PRN Reason: Insomnia Miscellaneous Medication (Pharmacy To Dose) 0 each IVPB PRN PRN PRN Reason: VANC Pharmacy to Dose Flurazepam Hcl 15 Mg (Capsules) 0 each PO HS [facility] Last Admin: 01/23/18 21:59 Dose: 1 each Trifluoperazine Hcl (2 Mg Tab) 0 each PO TID [facility] Last Admin: 01/24/18 08:27 Dose: 1 each Polyethylene Glycol (Miralax) 17 gm PO DAILY [facility] Last Admin: 01/24/18 08:30 Dose: Not Given Rosuvastatin Calcium (Crestor) 5 mg PO DAILY [facility] Last Admin: 01/24/18 08:27 Dose: 5 mg Senna/Docusate Sodium (Senokot S) 1 tab PO BID [facility] Last Admin: 01/24/18 08:30 Dose: Not Given Sodium Chloride (Flush - Normal Saline) 10 ml IVF Q12HR [facility] Last Admin: 01/24/18 08:31 Dose: 10 ml Sodium Chloride (Flush - Normal Saline) 10 ml IVF PRN PRN PRN Reason: Saline Flush Tamsulosin HCl (Flomax) 0.4 mg PO [facility] Trihexyphenidyl HCl (Artane) 1 mg PO TID-WM [facility] Last Admin: 01/24/18 08:27 Dose: 1 mg
[2018-01-24] MEDS: Vancomycin HCl 1.25 GM in Sodium Chloride 0.9% 250 ML 250 ML IVPB SCH ×2 (12:47→22:24)
--- NOTE | 2018-01-24 14:31 | PRG ---
DATE OF SERVICE: 01/24/2018 SUBJECTIVE: Feeling better, less pain in the right elbow. No respiratory symptoms or abdominal pain . No genitourinary symptoms. OBJECTIVE: VITAL SIGNS: He is afebrile. LUNGS: With symmetric clear breath sounds. HEART: S1, S2, regular rate. EXTREMITIES: Right elbow with less decrease in inflammatory changes. LABORATORY DATA: White cell count 7.5, hemoglobin 11, platelets 168. Creatinine 0.8. Microbiology with methicillin-resistant Staphylococcus aureus. ASSESSMENT AND DISCUSSION: Schizophrenia, recurrent falls, injury of right elbow in October with inflam matory process which has persisted despite antimicrobial therapy and drainage. 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 Continue vancomycin for a pro tracted period of time. End date of therapy estimated around 02/24/2018, which will elapse. Elizabeth moraes further surgical intervention with resection of the olecranon and Versed depending on clinical prog ress.
[2018-01-24] MEDS: Atorvastatin Calcium 10 MG TAB PO SCH (20:08)
[2018-01-24] MEDS: Tamsulosin HCl 0.4 MG CAP PO SCH (20:15)
[2018-01-24 21:32] LABS: Vancomycin, Trough 18.4 ug/mL
[2018-01-24] MEDS: FLURAZEPAM HCL 15 MG PO SCH (22:24)
[2018-01-25] MEDS: Atenolol 50 MG TAB PO SCH (06:19)
[2018-01-25] MEDS: Trihexyphenidyl 2 MG TAB PO SCH ×3 (08:14→17:37)
[2018-01-25] MEDS: Rosuvastatin 5 MG TAB PO SCH (08:14)
[2018-01-25] MEDS: Famotidine 20 MG TAB PO SCH ×2 (08:14→21:44)
[2018-01-25] MEDS: Enoxaparin Sodium 40 MG/0.4 ML SYRINGE SC SCH (08:15)
[2018-01-25] MEDS: Polyethylene Glycol 3350 17 GM Packet PO SCH (08:15)
[2018-01-25] MEDS: Docusate 100 MG CAP PO SCH ×2 (08:15→21:44)
[2018-01-25] MEDS: Senokot S 8.6-50 MG TAB PO SCH ×2 (08:16→21:45)
--- NOTE | 2018-01-25 10:11 | SPC ---
ULTRASOUND GUIDED LEFT UPPER EXTREMITY PICC LINE PLACEMENT: DATE: 01/25/18. HISTORY: Right elbow infection. FLUOROSCOPY: Total fluoroscopy time is 0 minutes with a total dose of 97 mGy*^cm2. TECHNIQUE: After informed consent was obtained, the patient was placed on the angiography table in the supine po sition. The left upper extremity was meticulously prepped and draped in the usual sterile fashion. An appropriate access site was determined with ultrasound guidance. The skin and subcutaneous tissues were infiltrated with buffered 1% Lidocaine for local anesthesia. Utilizing concurrent real-time ultrasound guidance, the left basilic vein was accessed utilizing micr opuncture technique, and a 5 Brazilian peelaway sheath was placed. The catheter was measured and cut to the appropriate length. The catheter was placed over the guidewire with the tip positioned overlyin g the SVC. Guidewire and peelaway sheath were removed. The catheter was accessed and aspirated/flus hed easily. The catheter was secured to the skin utilizing a Stat-Lock device, and a dry sterile maddi ssing was placed. The patient tolerated the procedure well and without immediate complication. FINDINGS: Technically successful placement of a single-lumen 5 Brazilian 40 cm PICC line via the left basilic vein . The tip of the catheter overlies the SVC. IMPRESSION: Technically successful left upper extremity PICC line placement. POS: JACKY
[2018-01-25] MEDS: Vancomycin HCl 1.25 GM in Sodium Chloride 0.9% 250 ML 250 ML IVPB SCH ×2 (10:55→21:45)
--- NOTE | 2018-01-25 11:51 | PQF ---
CLINICAL DOCUMENTATION IMPROVEMENT CLARIFICATION FORM: ICD-10 Updated PLEASE DO AN ADDENDUM TO THE PROGRESS NOTE WITH ANY DOCUMENTATION UPDATES OR ADDITIONS AND CARRY THROUGH TO DC SUMMARY. THANK YOU. DATE: 01/25 ATTN: DR. LALA CASTILLO Please exercise your independent, professional judgment in responding to the clarification form. Clinical indicators are provided on the bottom of this form for your review. Please check appropriate box(s): Conflicting documentation was noted in the Medical Record, please clarify if patient is being treated/monitored for: [ ] SEPTIC ARTHRITIS OF R ELBOW [ ] R OLECRANON OSTEOMYELITIS [ ] Other diagnosis [ X) Unable to determine For continuity of documentation, please document condition throughout progress notes and discharge summary. Thank You. CLINICAL INDICATORS - SIGNS / SYMPTOMS/ LABS ATTENDING PN 01/22 - 01/24: DX/PLAN: 1) SEPTIC ARTHRITIS OF ELBOW, ACUTE, RIGHT INFECTIOUS DX CONSULT 01/22: ASSESSMENT: ...INJURY TO THE R ELBOW IN OCTOBER W/ INFLAMMATORY PROCESS WHICH DEVELOPED AND WAS TREATED IN NOVEMBER, NOW SEEMS TO BE ASSOCIATED WITH PERSISTENCE WITH EVIDENCE OF OLECRANON OSTEOMYELITIS. SEPTIC ARTHRITIS IS NOT RULED OUT. INFECTIOUS DX PN 01/24: ASSESSMENT & DISCUSSION: ...INJURY OF R ELBOW IN OCTOBER W/ INFLAMMATORY PROCESS WHICH HAS PERSISTED DESPITE ANTIMICROBIAL THERAPY & DRAINAGE. 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 CONTINUE VANCOMYCIN FOR A PROTRACTED PERIOD OF TIME. FOUR VIEW XRAY OF R ELBOW: FINDINGS: THERE IS NOW IRREGULARITY & LUCENCIES INVOLVING THE ENTHESOPHYTE WHICH COULD BE R/T OSTEOMYELITIS. IMPRESSION: 1). ...FINDINGS COULD BE R/T TO INFECTION INVOLVING THE OLECRANON BURSA & OSTEOMYELITIS INVOLVING THE ENTHESOPHYTE. RISK FACTORS: R ELBOW INJURY IN OCTOBER 2017 I&D OF R ELBOW NOVEMBER 2017 POSITIVE MRSA CULTURE OF R ELBOW (01/22) TREATMENT: INFECTIOUS DX CONSULT IV ANTIBIOTIC (VANCOMYCIN 01/21 - PRESENT) LUE PICC LINE PLACEMENT FOR PROTRACTED IV THERAPY THANK YOU! Marlee (This form is maintained as a part of the permanent medical record) 2014 [employer]. All Rights Reserved Marlee Harrington RN, BSN [email or web address] Office: [phone] [facility]
--- NOTE | 2018-01-25 16:56 | PDOC.PN ---
- Subjective Encounter Start Date: 01/25/18 Encounter Start Time: 16:55 Subjective: feels well. no new complaints -: good appetite,no constipation/diarrhea - Objective Resuscitation Status: Resuscitation Status FULL:Full Resuscitation MAR Reviewed: Yes Vital Signs & Weight: Vital Signs (12 hours) Temp Pulse Resp BP BP Pulse Ox 01/25/18 08:00 97.9 F 66 18 93 L 01/25/18 07:36 97.9 F 66 18 167/76 H 93 L 01/25/18 06:19 64 170/83 H Weight Admit Weight 167 lb 15.876 oz Weight 167 lb 15.876 oz I&O: 01/24/18 01/25/18 01/26/18 06:59 06:59 06:59 Intake Total 1795 1320 Output Total 2125 1500 Balance -330 -180 Result Diagrams: 01/23/18 03:55 01/23/18 03:55 Additional Labs: Microbiology 01/22/18 13:12 Elbow - Fluid Bacterial Culture - Final Methicillin resistant S.aureus 01/21/18 16:51 Venous blood - Left Arm Blood Culture - Preliminary NO GROWTH AT 48 HOURS 01/21/18 16:50 Venous blood - Right Hand Blood Culture - Preliminary NO GROWTH AT 48 HOURS Phys Exam - Physical Examination Constitutional: NAD HEENT: PERRLA, moist MMs, sclera anicteric, oral pharynx no lesions Neck: no nodes, no JVD, supple, full ROM Respiratory: no wheezing, no rales, no rhonchi, clear to auscultation bilateral Cardiovascular: RRR, no significant murmur, no rub Gastrointestinal: soft, non-tender, no distention, positive bowel sounds Musculoskeletal: no edema, pulses present Neurological: non-focal, normal sensation, moves all 4 limbs Psychiatric: normal affect, A&O x 3 Skin: no rash Dx/Plan (1) Septic arthritis of elbow Code(s): M00.9 - PYOGENIC ARTHRITIS, UNSPECIFIED Status: Acute Qualifiers: Laterality: right Comment: Vs Olecranon osteomyelitis s/p I&D 12/22/17.Cx MRSA . (2) Leucocytosis Code(s): D72.829 - ELEVATED WHITE BLOOD CELL COUNT, UNSPECIFIED Status: Acute Comment: Likely due to infection, continue IV antibiotics as below and recheck (3) HTN (hypertension) Code(s): I10 - ESSENTIAL (PRIMARY) HYPERTENSION Status: Chronic Comment: controlled (4) Schizophrenia Code(s): F20.9 - SCHIZOPHRENIA, UNSPECIFIED Status: Chronic Comment: continue home medications (5) BPH (benign prostatic hyperplasia) Code(s): N40.0 - BENIGN PROSTATIC HYPERPLASIA WITHOUT LOWER URINRY TRACT SYMP Status: Suspected Qualifiers: Lower urinary tract symptom detail: urinary frequency Comment: PSA high.will start Flomax w OP f/u w urology - Plan continue antibiotics, PT/OT, DVT proph w/SCDs cont IV vancomycin -: PICC placed.cont IV Abx as an op per ID follow up -: DC home when set up for OP IV Infusion. -: cont Flomas for frequency & high PSA-likley BPH.OP f/u -: hemodynamically stable.add Florastor * . Review of Systems - Review of Systems Constitutional: negative: fever, chills, sweats, weakness, malaise, other Respiratory: negative: Cough, Dry, Shortness of Breath, Hemoptysis, SOB with Excertion, Pleuritic Pain, Sputum, Wheezing Cardiovascular: negative: chest pain, palpitations, orthopnea, paroxysmal nocturnal dyspnea, edema, light headedness, other Gastrointestinal: negative: Nausea, Vomiting, Abdominal Pain, Diarrhea, Constipation, Melena, Hematochezia, Other Genitourinary: negative: Dysuria, Frequency, Incontinence, Hematuria, Retention , Other Musculoskeletal: negative: Neck Pain, Shoulder Pain, Arm Pain, Back Pain, Hand Pain, Leg Pain, Foot Pain, Other Neurological: negative: Weakness, Numbness, Incoordination, Change in Speech, Confusion, Seizures, Other - Medications/Allergies Allergies/Adverse Reactions: Allergies Allergy/AdvReac Type Severity Reaction Status Date / Time Sulfa (Sulfonamide Allergy Unknown Verified 01/21/18 22:22 Antibiotics) Medications: Current Medications Atenolol (Tenormin) 100 mg PO DAILY [facility] Last Admin: 01/25/18 06:19 Dose: 100 mg Atorvastatin Calcium (Lipitor) 10 mg PO HS [facility] Last Admin: 01/24/18 20:08 Dose: 10 mg Docusate Sodium (Colace) 100 mg PO BID [facility] Last Admin: 01/25/18 08:15 Dose: Not Given Enoxaparin Sodium (Lovenox) 40 mg SC 899 [facility] Last Admin: 01/25/18 08:15 Dose: Not Given Famotidine (Pepcid) 20 mg PO BID [facility] Last Admin: 01/25/18 08:14 Dose: 20 mg Vancomycin HCl 1.25 gm/ Sodium (Chloride) 250 mls @ 166.667 mls/hr IVPB 1000, 2200 [facility] Last Admin: 01/25/18 10:55 Dose: 250 mls Melatonin (Melatonin) 3 mg PO HSPRN PRN PRN Reason: Insomnia Miscellaneous Medication (Pharmacy To Dose) 0 each IVPB PRN PRN PRN Reason: VANC Pharmacy to Dose Flurazepam Hcl 15 Mg (Capsules) 0 each PO [facility] Last Admin: 01/24/18 22:24 Dose: 1 each Trifluoperazine Hcl (2 Mg Tab) 0 each PO TID [facility] Last Admin: 01/25/18 14:02 Dose: 1 each Polyethylene Glycol (Miralax) 17 gm PO DAILY [facility] Last Admin: 01/25/18 08:15 Dose: Not Given Rosuvastatin Calcium (Crestor) 5 mg PO DAILY [facility] Last Admin: 01/25/18 08:14 Dose: 5 mg Senna/Docusate Sodium (Senokot S) 1 tab PO BID [facility] Last Admin: 01/25/18 08:16 Dose: Not Given Sodium Chloride (Flush - Normal Saline) 10 ml IVF Q12HR [facility] Last Admin: 01/25/18 08:16 Dose: 10 ml Sodium Chloride (Flush - Normal Saline) 10 ml IVF PRN PRN PRN Reason: Saline Flush Tamsulosin HCl (Flomax) 0.4 mg PO [facility] Last Admin: 01/24/18 20:15 Dose: 0.4 mg Trihexyphenidyl HCl (Artane) 1 mg PO [facility] Last Admin: 01/25/18 14:01 Dose: 1 mg
[2018-01-25] MEDS ORDERED: Cyanocobalamin (Vitamin B-12) 1,000 MCG TAB PO SCH (17:15)
[2018-01-25] MEDS: Atorvastatin Calcium 10 MG TAB PO SCH (21:44)
[2018-01-25] MEDS: Tamsulosin HCl 0.4 MG CAP PO SCH (21:45)
[2018-01-25] MEDS: FLURAZEPAM HCL 15 MG PO SCH (21:45)
[2018-01-26] MEDS: Trihexyphenidyl 2 MG TAB PO SCH ×3 (08:57→18:29)
[2018-01-26] MEDS: Famotidine 20 MG TAB PO SCH (08:57)
[2018-01-26] MEDS: Docusate 100 MG CAP PO SCH (08:57)
[2018-01-26] MEDS: Senokot S 8.6-50 MG TAB PO SCH (08:57)
[2018-01-26] MEDS: Atenolol 50 MG TAB PO SCH (08:57)
[2018-01-26] MEDS: Rosuvastatin 5 MG TAB PO SCH (08:57)
[2018-01-26] MEDS ORDERED: Saccharomyces boulardii 250 MG CAP PO SCH (09:00)
[2018-01-26] MEDS ORDERED: Cyanocobalamin (Vitamin B-12) 1,000 MCG TAB PO SCH (09:00)
[2018-01-26] MEDS ORDERED: Heparin 1,000 UNITS/ML VIAL ONE (09:00)
[2018-01-26] MEDS: Polyethylene Glycol 3350 17 GM Packet PO SCH (10:42)
[2018-01-26] MEDS: Enoxaparin Sodium 40 MG/0.4 ML SYRINGE SC SCH (10:47)
[2018-01-26 12:32] LABS: Vancomycin, Trough 17.5 ug/mL
--- NOTE | 2018-01-26 12:51 | DIS ---
TRANSFER OF CARE NOTE DATE OF ADMISSION: 01/21/2018 DATE OF DISCHARGE: 01/26/2018 DISPOSITION: Discharged home. PRIMARY CARE PROVIDER: Dr. Rhodes FINAL DIAGNOSES: 1. Pyogenic arthritis/bursitis with methicillin-resistant Staph aureus. 2. Hypertension. 3. Benign prostatic hypertrophy without symptomatology. 4. 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 5. Schizophrenia. 6. Dyslipidemia. DISCHARGE MEDICATIONS: Vancomycin 1.25 mg IV b.i.d. through 02/24/[address] Pederson at his office, Florastor 250 mg a day, prescription written. Trihexyphenidyl 2 mg twice a day, trifluoperazine 1 ta blet 2 mg t.i.d., Crestor 5 mg a day, lorazepam 30 mg at bedtime, atenolol 100 mg a day. ALLERGIES: SULFONAMIDES. CODE STATUS: FULL. DIET: Heart healthy. PENDING AT TIME OF DISCHARGE: Nothing. HOSPITAL COURSE: The patient admitted with a draining lesion from his right elbow. It grew out meth icillin-resistant Staph aureus. He was placed in the hospital, put on vancomycin IV. Blood cultures were negative. The wound culture, as I said before, was positive for MRSA. Other pertinent laboratory, CBC initially unremarkable 9.3 white count, followed by 8.7 on 01/22/2018 , dropped back down to 7.5 on 01/23/2018. Chemistries; basic metabolic profile normal. Liver functi on tests normal. PSA elevated at 8.73. The patient was seen in consultation by orthopedic surgeon, Dr. Juanpablo Galvin, Infectious Disease, Jose Pederson. The patient has had a PICC line placed. He will be followed as an outpatient by Dr. Wilbur stanley receiving the IV antibiotics mentioned in the discharge medications. He has home health and they will be notified of the need for wound care for his right elbow. He will need to see Dr. Rhodes in t he next 1-2 weeks for followup.
[2018-01-26] MEDS: Vancomycin HCl 1.25 GM in Sodium Chloride 0.9% 250 ML 250 ML IVPB SCH (13:37)
[2018-01-26 18:38] VITALS: BP 164/96; TEMP 97.9
[2018-01-27] MEDS ORDERED: Vancomycin HCl 1.25 GM in Sodium Chloride 0.9% 250 ML 250 ML IVPB SCH (02:00)
== END 2018-01-26 18:40 | disposition home health service (06) | DRG 540 ==
LOC: ERS 16:15 → T4-B 20:13
PROVIDERS: ADMIT Internal Medicine; ATTEND Internal Medicine
PROC: 02HV33Z Insertion of Infusion Device into Superior Vena Cava, Percutaneous Approach (ICD-10-PCS; principal; 2018-01-25)
DX: M86.8X2 Other osteomyelitis, upper arm (principal); M00.021 Staphylococcal arthritis, right elbow; B95.62 Methicillin resistant Staphylococcus aureus infection as the cause of diseases classified elsewhere; I10 Essential (primary) hypertension; F20.9 Schizophrenia, unspecified; N40.1 Benign prostatic hyperplasia with lower urinary tract symptoms; R35.0 Frequency of micturition; Z88.2 Allergy status to sulfonamides
CPT/HCPCS: 36415; 36569; 80048; 80053; 80202; 81003; 83605; 85025; 87040; 87070; 87077; 87186; 87205; 96365; 96367; A4216; C1751; G0103; G8978-GP-CK; G8979-GP-CJ; J0696; J1644; J1650; J3370; J7050

== ENCOUNTER 2018-01-29 11:20 | Inpatient (IN) | payer MEDICARE ==
[2018-01-29 12:09] LABS: #Basophils 0.1 thou/uL (0.0-0.2); #Eosinphils 0.1 thou/uL (0.0-0.7); #Lymphocytes 1.1 thou/uL (1.20-3.40); #Monocytes 1.2 thou/uL (0.11-0.59); #Neutrophils 8.4 thou/uL (1.40-6.50); %Basophils 0.5 % (0.0-1.0); %Lymphocytes 10.4 % (21.0-51.0); %Monocytes 10.8 % (0.0-10.0); %Neutrophils 77.3 % (42.0-75.0); Hemoglobin 13.7 g/dL (14.0-18.0); Mean Corpuscular HGB CONC 33.8 g/dL (32.0-36.0); Mean Corpuscular Hemoglobin 32.5 pg (27.0-31.0); Mean Corpuscular Volume 96.2 fL (78.0-98.0); Mean Platelet Volume 6.9 fL (7.4-10.4); Platelet Count 215 thou/uL (130-400); RBC Distribution Width 12.4 % (11.5-14.5); Red Blood Cell (RBC) Count 4.21 mill/uL (4.70-6.10); White Blood Cell (WBC) Count 10.9 thou/uL (4.8-10.8)
[2018-01-29 12:20] LABS: ALT (SGPT) 34 U/L (8-55); AST (SGOT) 22 U/L (5-34); Albumin 3.4 g/dL (3.4-4.8); Alkaline Phosphatase 88 U/L (40-150); Anion Gap 11 mmol/L (10-20); BUN (Urea Nitrogen) 15 mg/dL (8.4-25.7); Bilirubin, Total 0.7 mg/dL (0.2-1.2); Calc. Creatinine Clearance 0 mL/min (70-130); Calcium 9.4 mg/dL (7.8-10.44); Carbon Dioxide 26 mmol/L (23-31); Chloride 106 mmol/L (98-107); Estimated GFR-MDRD 90; Globulin 3.2 g/dL (2.4-3.5); Glucose 107 mg/dL (83-110); Potassium 3.5 mmol/L (3.5-5.1); Protein, Total 6.6 g/dL (5.8-8.1); Sodium 139 mmol/L (136-145)
--- NOTE | 2018-01-29 12:35 | CT ---
NONCONTRAST CT HEAD: 01/29/2018 HISTORY: Injury after fall last night. COMPARISON: 11/18/2017 FINDINGS: Again noted are the extraaxial subdural collections, which may be related to either subdural hygromas or remote subdural hematomas. However, there is increased density now seen within the region of the extraaxial collection in the left cerebral hemisphere, suggesting acute areas of subdural hemorrhage on the left. There is now mild mass effect on the left cerebral hemisphere, which was not present o n the prior study. The greatest transverse dimension of the extraaxial collection on the right measu res 2 cm and previously measured 1.9 cm. However, there is mild sulcal atrophy on the left. No incr eased density is seen within the right subdural collection. There is no evidence of an acute cortical infarction. There is suggestion of trace shift of the midl ine structures to the right. Opacification of a few left ethmoid air cells is present No calvarial fracture is seen. IMPRESSION: Bilateral subdural collections with interval development of subdural hemorrhage on the left. There i s now mass effect on the left cerebral hemisphere with associated sulcal effacement and trace shift o f the midline structures to the right. The above findings were discussed with Ashley Carnes PA-C, in the emergency department, on 018, at 11:51 hours. CODE CR POS: JACKY
[2018-01-29] MEDS ORDERED: Acetaminophen 325 MG TAB PO PRN (15:06)
[2018-01-29 16:07] LABS: Vancomycin, Random 13.7 ug/mL (See Comment)
--- NOTE | 2018-01-29 16:22 | CON ---
DATE OF CONSULTATION: 01/29/2018 NEUROSURGERY CONSULTATION HISTORY OF PRESENT ILLNESS: Mr. King is an 82-year-old man who was brought to the emergency departm ent today via EMS for evaluation of recurrent falls over the last month according to the patient. He has had one this morning and then one about 48-72 hours ago. He has a history of Positive for Parki nson's disease and also most recently has had subsequent to a fall earlier this year, laceration to t he right elbow which ultimately resulted in cellulitis and sepsis which he has had other ER visits fo r as well. Currently, he has a PICC line antibiotics being administered and the wound is still rodriguez ged on the right upper extremity. Neurosurgery was consulted for CT scan revealing large right-sided subdural hygroma as well as a large left-sided subdural hematoma which is around 90% of chronic in a ppearance with some areas of acute to subacute mixed with then particularly in the most anterior port ions in the frontal convexity. There also appeared to be several septations again further confirming the chronic nature of the majority of this hemorrhage. On my visit with him at bedside, the patient is alert and oriented x4. He is able to give me detailed history of his present medical history as well as his 's phone number on top of his head. He knows the date, the year, the month. He is a ble to recite his birthday and name with ease. PHYSICAL EXAMINATION: HEENT: Pupils are equally round and reactive to light. Extraocular movements are intact. EXTREMITIES: His upper extremity and lower extremity motor exam is normal with good 5/5 strength in all movements. There is no sensory disturbance that I can discern in any location. From our perspec tive, I feel that this is not an emergent surgical matter and the patient could potentially even be d ischarged home if he has safe family support to do so. He may need surgical intervention at some poi nt, but this hemorrhage has likely been there for anywhere from 4-6 potentially even 8 weeks or more given its chronicity and appearance. This is discussed with the emergency room nurse practitioner an d physician.
[2018-01-29 16:27] VITALS: BMI 23.9
[2018-01-29 16:55] LABS: Bilirubin Negative (Negative); Blood, Urine Negative (Negative); Clarity CLEAR (Clear); Glucose, Urine (Dipstick) Negative (Negative); Leukocyte Negative (Negative); Nitrite Negative (Negative); Protein, Urine (Dipstick) Negative (Neg-Trace); Urobilinogen 0.2 mg/dL (0.2-1.0); pH, Urine 7.5 (5.0-9.0)
[2018-01-29 16:58] LABS: Bacteria/HPF None Seen HPF (None Seen); Hyaline Casts/LPF 0-3 HYALINE CAST LPF (0-3 Hyaline); RBC/HPF 0-3 HPF (0-3); Squamous Epithelial None Seen HPF (0-3); WBC/HPF None Seen HPF (0-3)
[2018-01-29] MEDS: Vancomycin HCl 1.5 GM in Sodium Chloride 0.9% 250 ML 300 ML IVPB SCH (17:20)
--- NOTE | 2018-01-29 18:27 | HP ---
CHIEF COMPLAINT: Fall. HISTORY OF PRESENT ILLNESS: Patient is a very pleasant 82-year-old who was recently discharged from the hospital on 01/26 for right elbow arthritis, bursitis with staff. The patient's states that he has been having frequent falls; however, today patient stated that his legs gave up and he fell. The patient denies hitting his head; however, a CT scan was done in the ER which indicated a subdura l hematoma. The patient's states that the patient has had multiple falls in the past; however, does not tell his about it. Patient denies any passing out or denies any chest pain or any feve rs or any chills. Patient stated that his legs gave up today and he got to the ground, unable to get up by patient's and the patient's son. PAST MEDICAL HISTORY: Hypertension, schizophrenia, and insomnia. PAST SURGICAL HISTORY: Hydrocele removal, appendectomy, cholecystectomy. FAMILY HISTORY: Denies any family history of heart disease, cancer. ALLERGIES: SULFA DRUGS, unable to recall the reactions. MEDICATIONS: He takes trifluoperazine 1 tablet 3 times a day, Senokot 1 b.i.d., Florastor 250 daily, rosuvastatin 5 mg daily, MiraLax 17 grams daily, flurazepam 2 caps p.o. at bedtime, Pepcid 20 mg b.i .d., and also he was sent home with vancomycin twice a day. REVIEW OF SYSTEMS: All negative except for the ones mentioned above in the HPI. LABORATORY DATA: As of the following: WBC 10.9, hemoglobin of 13.7, hematocrit 40.5, platelets of 2 15. Chemistry: Sodium 139, potassium of 3.5, BUN of 15, creatinine of 0.82. LFTs are normal. His urine is pending. He did have a CT brain which indicates bilateral subdural collection with interval development of subdural hemorrhage on the left. There is no mass effect on the left cerebral hemisp here with associated sulcal effacement and traced shift of the midline structures to the right. PHYSICAL EXAMINATION: VITAL SIGNS: Temperature of 98.7, heart rate of 75, pulse of 16, 95% on room air, blood pressure 169 /77. GENERAL: He is awake, alert, oriented, does not appear in distress. CARDIOVASCULAR: S1, S2 present. No murmurs, rubs or gallops. LUNGS: Clear to auscultation, rhonchi or wheezes noted. ABDOMEN: Soft, nontender. Bowel sounds are present x2. EXTREMITIES: No edema. Pedal pulses are present x2. Neurovascular rise intact bilateral in upper e xtremity and lower extremity. Good movement. Sensation also intact. NEUROLOGIC: Cranial nerves also intact. SKIN: Patient upon evaluating his cephalic area, there is no lesions or bumps that are noted. He do es have a PICC line on his left arm and his right elbow is dressed. ASSESSMENT AND PLAN: The patient is a very pleasant 82-year-old male who presents to the hospital af ter multiple falls. 1. Deconditioning. Patient has had falls at home per patient's ; however, the patient has been hiding his falls from his . He does have a significant amount of subdural hematoma with some alvino ft. We will get a vitamin B12. The patient is not on any aspirin or any blood thinners. We will pu t sequential compression devices on for deep vein thrombosis prophylaxis. We will also get physical therapy, occupational therapy, and also possible rehab screen for possible inpatient rehab versus SNF . We will also make sure we get a urinalysis to rule out any infectious process. Also we will get a chest x-ray to make sure that he does not have any smoldering infection; however, the patient is cur rently on vancomycin for his right elbow infection. 2. Subdural collection with interval development of subdural hemorrhage and Neurosurgery has been co nsulted. The patient will be admitted to [facility] with the frequent neuro checks. Patient currently is a FULL CODE. I have discussed this with patient and his and they want to be FULL CODE. The pat ient does have a trace shift of midline. Again, we will continue to monitor neuro checks and if anyt bobbi changes will call Neurosurgery. 4. Right elbow recent infection with staph. We will continue the vancomycin. We will check a rando m vancomycin and also get pharmacy to dose the vancomycin.
[2018-01-29] MEDS: FLURAZEPAM HCL 15 MG PO SCH (21:31)
[2018-01-29] MEDS: Docusate 100 MG CAP PO SCH (21:31)
[2018-01-29] MEDS: Melatonin 3 MG TAB PO SCH (21:31)
[2018-01-29] MEDS: TRIFLUOPERAZINE HCL 2 MG PO SCH (21:32)
[2018-01-29] MEDS: Trihexyphenidyl 2 MG TAB PO SCH (21:32)
[2018-01-30 04:36] LABS: #Basophils 0.1 thou/uL (0.0-0.2); #Eosinphils 0.1 thou/uL (0.0-0.7); #Lymphocytes 1.8 thou/uL (1.20-3.40); #Monocytes 1.4 thou/uL (0.11-0.59); #Neutrophils 7.8 thou/uL (1.40-6.50); %Basophils 0.6 % (0.0-1.0); %Eosinophils 1.2 % (0.0-10.0); %Lymphocytes 15.8 % (21.0-51.0); %Monocytes 12.4 % (0.0-10.0); Hemoglobin 12.7 g/dL (14.0-18.0); Mean Corpuscular Hemoglobin 33.6 pg (27.0-31.0); Mean Corpuscular Volume 96.1 fL (78.0-98.0); Mean Platelet Volume 7.6 fL (7.4-10.4); Platelet Count 205 thou/uL (130-400); RBC Distribution Width 12.4 % (11.5-14.5); Red Blood Cell (RBC) Count 3.77 mill/uL (4.70-6.10); White Blood Cell (WBC) Count 11.1 thou/uL (4.8-10.8)
[2018-01-30 05:06] LABS: Anion Gap 11 mmol/L (10-20); BUN (Urea Nitrogen) 13 mg/dL (8.4-25.7); Calc. Creatinine Clearance 85 mL/min (70-130); Calcium 8.9 mg/dL (7.8-10.44); Carbon Dioxide 26 mmol/L (23-31); Chloride 105 mmol/L (98-107); Estimated GFR-MDRD Greater than 90; Glucose 91 mg/dL (83-110); Potassium 3.4 mmol/L (3.5-5.1); Sodium 139 mmol/L (136-145)
[2018-01-30] MEDS: Vancomycin HCl 1.5 GM in Sodium Chloride 0.9% 250 ML 300 ML IVPB SCH ×2 (06:15→16:03)
[2018-01-30] MEDS: Docusate 100 MG CAP PO SCH ×2 (09:07→21:11)
[2018-01-30] MEDS: TRIFLUOPERAZINE HCL 2 MG PO SCH ×3 (09:07→21:12)
[2018-01-30] MEDS: Rosuvastatin 5 MG TAB PO SCH (09:07)
[2018-01-30] MEDS: Saccharomyces boulardii 250 MG CAP PO SCH (09:07)
[2018-01-30] MEDS: Trihexyphenidyl 2 MG TAB PO SCH ×2 (09:16→21:13)
--- NOTE | 2018-01-30 09:28 | PRG ---
DATE OF SERVICE: 01/30/2018 Mr. King is on the second day of his hospital stay this morning for falls at home and a subacute on chronic subdural hematoma. In the bedside this morning, he is doing well. He is using the bedside u rinal and appears to be stable to the yesterday's examination. Neurosurgery will sign off at this ti me unless there is any acute change. We will plan to follow up with him in a short interval after he was transitioned out of the hospital. Israel Early PA-C, dictating for
--- NOTE | 2018-01-30 09:41 | CON ---
DATE OF CONSULTATION: 01/30/2018 CONSULTING PHYSICIAN: Neurosurgery Service. 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 PLAN: As per Neurosurgery. HISTORY OF PRESENT ILLNESS: Mr. King is an 82-year-old gentleman who was brought in due to recent f alls. He had a CT scan of the brain done in the emergency room which showed a right frontal hygroma and a left frontal mixed hygroma and subdural hematoma. Neurosurgery was consulted to assess the pat ient. They decided he was a nonsurgical candidate. There is some questionable history of Parkinson disease. The patient is on no Parkinson medication. He denies a history of Parkinson's. He does re port he uses a walker to get around the house. He has fallen on occasion. He denies any problems ot her than some mild headache. PAST MEDICAL HISTORY: Cellulitis, hypertension, schizophrenia, BPH. ALLERGIES: SULFA. MEDICATIONS: List was reviewed. SOCIAL HISTORY: Lives at home with his . Denies tobacco or alcohol use. FAMILY HISTORY: Noncontributory. REVIEW OF SYSTEMS: Otherwise, negative. PHYSICAL EXAMINATION: GENERAL: Alert and cooperative with the exam. VITAL SIGNS: Blood pressure 190/86, pulse 76, respirations 16, temperature 99.5. HEENT: Pupils equal. Conjunctivae clear. Oropharynx clear. NECK: Supple, no lymphadenopathy noted. EXTREMITIES: No cyanosis, clubbing or edema. NEUROLOGIC: He was alert and cooperative. He is mentally a bit slow, but appropriate. Speech is fl uent and clear. Cranial nerves were intact. Motor exam shows antigravity strength in all 4 extremit ies. There is normal tone bilaterally. Rapid alternating movements were symmetric and appropriate. No tremor was seen. Gait was not tested. No abnormal movements were noted. Sensation was intact t o light touch. LABORATORY STUDIES: Unremarkable CBC, serum chemistry, urinalysis. A CT scan of the brain was revie thu. SUMMARY: I do not see any acute neurologic issues or evidence of Parkinson disease. The patient can be discharged at neurosurgery's discretion.
[2018-01-30] MEDS ORDERED: Atenolol 50 MG TAB PO SCH (10:00)
--- NOTE | 2018-01-30 12:47 | PDOC.PN ---
- Subjective Encounter Start Date: 01/30/18 Encounter Start Time: 07:00 Pt seen for followup re: physical deconditioning. Denies chest pain, shortness of breath, fevers or chills. - Objective Resuscitation Status: Resuscitation Status FULL:Full Resuscitation MAR Reviewed: Yes Vital Signs & Weight: Vital Signs (12 hours) Temp Pulse Resp BP BP Pulse Ox 01/30/18 11:47 98.1 F 66 18 172/79 H 92 L 01/30/18 10:22 76 175/77 H 01/30/18 07:54 99.5 F 76 16 190/86 H 92 L 01/30/18 04:00 98.2 F 75 12 145/66 H 92 L Weight Admit Weight 167 lb 1 oz Weight 167 lb 1 oz Result Diagrams: 01/30/18 03:45 01/30/18 03:45 EKG Reviewed by me: Yes (Tele: NSR) Phys Exam - Physical Examination Constitutional: NAD HEENT: moist MMs, sclera anicteric, oral pharynx no lesions, 2+ tonsils Neck: no nodes, no JVD, supple, full ROM Respiratory: no wheezing, no rales, no rhonchi, clear to auscultation bilateral Cardiovascular: RRR, no rub S1, S2 Gastrointestinal: soft, non-tender, no distention, positive bowel sounds Neurological: moves all 4 limbs Psychiatric: normal affect Deviation from normal: Oriented to person and place, not to time Dx/Plan (1) Physical deconditioning Code(s): R53.81 - OTHER MALAISE Status: Acute Comment: await therapy services input (2) Subdural hematoma Code(s): S06.5X9A - TRAUM SUBDR HEM W LOC OF UNSP DURATION, INIT Status: Chronic Comment: appreciate neurosurgery input (3) Septic arthritis of elbow Code(s): M00.9 - PYOGENIC ARTHRITIS, UNSPECIFIED Status: Chronic Qualifiers: Laterality: right Comment: continue vancomycin (4) HTN (hypertension) Code(s): I10 - ESSENTIAL (PRIMARY) HYPERTENSION Status: Chronic Comment: resume atenolol (5) BPH (benign prostatic hyperplasia) Code(s): N40.0 - BENIGN PROSTATIC HYPERPLASIA WITHOUT LOWER URINRY TRACT SYMP Status: Suspected Qualifiers: Lower urinary tract symptom detail: urinary frequency Comment: PSA high.will start Flomax w OP f/u w urology - Plan * . Review of Systems - Review of Systems Constitutional: negative: fever, chills, sweats, weakness, malaise Respiratory: negative: Cough, Shortness of Breath, SOB with Excertion, Pleuritic Pain, Wheezing Cardiovascular: negative: chest pain, palpitations, orthopnea, paroxysmal nocturnal dyspnea, edema, light headedness Gastrointestinal: negative: Nausea, Vomiting, Abdominal Pain, Diarrhea, Constipation, Melena, Hematochezia Genitourinary: negative: Dysuria, Frequency, Incontinence, Hematuria, Retention Musculoskeletal: negative: Neck Pain, Shoulder Pain, Arm Pain, Back Pain, Hand Pain, Leg Pain, Foot Pain - Medications/Allergies Allergies/Adverse Reactions: Allergies Allergy/AdvReac Type Severity Reaction Status Date / Time Sulfa (Sulfonamide Allergy Unknown Verified 01/21/18 22:22 Antibiotics) Medications: Current Medications Acetaminophen (Tylenol) 650 mg PO Q4H PRN PRN Reason: Headache/Fever or Pain Atenolol (Tenormin) 100 mg PO DAILY [facility] Docusate Sodium (Colace) 100 mg PO BID [facility] Last Admin: 01/30/18 09:07 Dose: 100 mg Vancomycin HCl 1.5 gm/ Sodium (Chloride) 300 mls @ 200 mls/hr IVPB 0500,1700 [facility] Last Admin: 01/30/18 06:15 Dose: 300 mls Melatonin (Melatonin) 3 mg PO [facility] Last Admin: 01/29/18 21:31 Dose: 3 mg Miscellaneous Medication (Pharmacy To Dose) 1 each IVPB PRN PRN PRN Reason: Pharmacy to dose Flurazepam Hcl [ Flurazepam Hcl] 15 Mg Capsule 0 each PO [facility] Last Admin: 01/29/18 21:31 Dose: 1 each Trifluoperazine Hcl [Trifluoperazine Hcl ] 2 Mg Tablet 0 each PO TID [facility] Last Admin: 01/30/18 09:07 Dose: 1 each Rosuvastatin Calcium (Crestor) 5 mg PO DAILY [facility] Last Admin: 01/30/18 09:07 Dose: 5 mg Saccharomyces Boulardii (Florastor) 250 mg PO DAILY [facility] Last Admin: 01/30/18 09:07 Dose: 250 mg Trihexyphenidyl HCl (Artane) 2 mg PO BID [facility] Last Admin: 01/30/18 09:16 Dose: 2 mg
[2018-01-30] MEDS ORDERED: hydrALAZINE 20 MG/ML VIAL SLOW IVP SCH (13:45)
[2018-01-30 16:19] LABS: Vancomycin, Trough 17.8 ug/mL
[2018-01-30] MEDS: Melatonin 3 MG TAB PO SCH (21:11)
[2018-01-30] MEDS: FLURAZEPAM HCL 15 MG PO SCH (21:11)
[2018-01-31] MEDS: Vancomycin HCl 1.5 GM in Sodium Chloride 0.9% 250 ML 300 ML IVPB SCH ×2 (04:57→18:06)
[2018-01-31] MEDS: TRIFLUOPERAZINE HCL 2 MG PO SCH ×3 (08:29→21:58)
[2018-01-31] MEDS: Trihexyphenidyl 2 MG TAB PO SCH ×2 (08:30→21:58)
[2018-01-31] MEDS: Docusate 100 MG CAP PO SCH ×2 (08:30→21:57)
[2018-01-31] MEDS: Atenolol 50 MG TAB PO SCH (08:30)
[2018-01-31] MEDS: Saccharomyces boulardii 250 MG CAP PO SCH (08:30)
[2018-01-31] MEDS: Rosuvastatin 5 MG TAB PO SCH (08:30)
--- NOTE | 2018-01-31 13:15 | PDOC.PN ---
- Subjective Encounter Start Date: 01/31/18 Encounter Start Time: 07:20 Pt seen for followup re: physical deconditioning. Denies chest pain, shortness of breath, fevers or chills. - Objective Resuscitation Status: Resuscitation Status FULL:Full Resuscitation MAR Reviewed: Yes Vital Signs & Weight: Vital Signs (12 hours) Temp Pulse Resp BP Pulse Ox 01/31/18 12:00 99.2 F 68 20 172/87 H 94 L 01/31/18 08:30 76 01/31/18 08:00 99.4 F 76 20 166/77 H 93 L 01/31/18 04:00 98.5 F 81 18 165/79 H 91 L Weight Admit Weight 167 lb 1 oz Weight 167 lb 1 oz I&O: 01/30/18 01/31/18 02/01/18 06:59 06:59 06:59 Intake Total 1040 120 Output Total 375 Balance 665 120 Result Diagrams: 01/30/18 03:45 01/30/18 03:45 EKG Reviewed by me: Yes (Tele: NSR) Phys Exam - Physical Examination HEENT: moist MMs Neck: supple Respiratory: clear to auscultation bilateral Cardiovascular: RRR Gastrointestinal: soft Neurological: moves all 4 limbs Psychiatric: normal affect Deviation from normal: R elbow dressing Dx/Plan (1) Physical deconditioning Code(s): R53.81 - OTHER MALAISE Status: Acute Comment: likely will need SNU or Inpt Rehab (2) Subdural hematoma Code(s): S06.5X9A - TRAUM SUBDR HEM W LOC OF UNSP DURATION, INIT Status: Chronic Comment: no indication for surgery at this time (3) Septic arthritis of elbow Code(s): 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 Review of Systems - Review of Systems Constitutional: weakness Cardiovascular: negative: chest pain, palpitations, orthopnea, paroxysmal nocturnal dyspnea, edema, light headedness Genitourinary: negative: Dysuria, Frequency, Incontinence, Hematuria, Retention - Medications/Allergies Allergies/Adverse Reactions: Allergies Allergy/AdvReac Type Severity Reaction Status Date / Time Sulfa (Sulfonamide Allergy Unknown Verified 01/21/18 22:22 Antibiotics) Medications: Current Medications Acetaminophen (Tylenol) 650 mg PO Q4H PRN PRN Reason: Headache/Fever or Pain Atenolol (Tenormin) 100 mg PO DAILY [facility] Last Admin: 01/31/18 08:30 Dose: 100 mg Docusate Sodium (Colace) 100 mg PO BID [facility] Last Admin: 01/31/18 08:30 Dose: 100 mg Hydralazine HCl (Apresoline) 10 mg SLOW IVP Q4H PRN PRN Reason: SBP Greater Than 170 Vancomycin HCl 1.5 gm/ Sodium (Chloride) 300 mls @ 200 mls/hr IVPB 0500,1700 [facility] Last Admin: 01/31/18 04:57 Dose: 300 mls Melatonin (Melatonin) 3 mg PO HS [facility] Last Admin: 01/30/18 21:11 Dose: 3 mg Miscellaneous Medication (Pharmacy To Dose) 1 each IVPB PRN PRN PRN Reason: Pharmacy to dose Flurazepam Hcl [ Flurazepam Hcl] 15 Mg Capsule 0 each PO HS [facility] Last Admin: 01/30/18 21:11 Dose: 1 each Trifluoperazine Hcl [Trifluoperazine Hcl ] 2 Mg Tablet 0 each PO TID [facility] Last Admin: 01/31/18 08:29 Dose: 1 each Rosuvastatin Calcium (Crestor) 5 mg PO DAILY [facility] Last Admin: 01/31/18 08:30 Dose: 5 mg Saccharomyces Boulardii (Florastor) 250 mg PO DAILY [facility] Last Admin: 01/31/18 08:30 Dose: 250 mg Trihexyphenidyl HCl (Artane) 2 mg PO BID [facility] Last Admin: 01/31/18 08:30 Dose: 2 mg
[2018-01-31] MEDS: hydrALAZINE 20 MG/ML VIAL SLOW IVP PRN ×2 (15:40→22:06)
[2018-01-31] MEDS: Melatonin 3 MG TAB PO SCH (21:57)
[2018-01-31] MEDS: FLURAZEPAM HCL 15 MG PO SCH (21:58)
[2018-02-01] MEDS: Vancomycin HCl 1.5 GM in Sodium Chloride 0.9% 250 ML 300 ML IVPB SCH ×2 (05:43→17:27)
[2018-02-01] MEDS: Atenolol 50 MG TAB PO SCH (08:54)
[2018-02-01] MEDS: Docusate 100 MG CAP PO SCH ×2 (08:55→21:25)
[2018-02-01] MEDS: TRIFLUOPERAZINE HCL 2 MG PO SCH ×3 (08:55→21:25)
[2018-02-01] MEDS: Saccharomyces boulardii 250 MG CAP PO SCH (08:55)
[2018-02-01] MEDS: Trihexyphenidyl 2 MG TAB PO SCH ×2 (08:56→21:25)
[2018-02-01] MEDS: Rosuvastatin 5 MG TAB PO SCH (08:59)
[2018-02-01] MEDS: hydrALAZINE 20 MG/ML VIAL SLOW IVP PRN (16:19)
--- NOTE | 2018-02-01 16:36 | PDOC.PN ---
- Subjective Encounter Start Date: 02/01/18 Encounter Start Time: 07:00 Pt seen for followup re: physical deconditioning. Denies chest pain, shortness of breath, fevers or chills. - Objective Resuscitation Status: Resuscitation Status FULL:Full Resuscitation MAR Reviewed: Yes Vital Signs & Weight: Vital Signs (12 hours) Temp Pulse Pulse Pulse Resp BP BP 02/01/18 16:19 73 183/81 H 02/01/18 15:52 99.0 F 73 16 02/01/18 14:55 70 79 163/86 H 02/01/18 12:00 98.4 F 62 16 02/01/18 09:54 174/79 H 02/01/18 08:54 82 159/72 H 02/01/18 08:36 02/01/18 07:54 98.5 F 82 16 BP BP BP Pulse Ox 02/01/18 16:19 02/01/18 15:52 183/81 H 93 L 02/01/18 14:55 191/86 H 02/01/18 12:00 147/70 H 94 L 02/01/18 09:54 163/79 H 176/81 H 02/01/18 08:54 02/01/18 08:36 93 L 02/01/18 07:54 159/72 H 93 L Weight Admit Weight 167 lb 1 oz Weight 167 lb 1 oz I&O: 01/31/18 02/01/18 02/02/18 06:59 06:59 06:59 Intake Total 1040 450 Output Total 375 200 100 Balance 665 250 -100 Result Diagrams: 02/02/18 05:53 02/02/18 05:53 EKG Reviewed by me: Yes (Tele: NSR) Phys Exam - Physical Examination Constitutional: NAD HEENT: moist MMs Neck: supple Respiratory: clear to auscultation bilateral Cardiovascular: RRR Neurological: moves all 4 limbs Psychiatric: normal affect Dx/Plan (1) Physical deconditioning Code(s): R53.81 - OTHER MALAISE Status: Acute Comment: awaiting SNU vs Inpt Rehab (2) Subdural hematoma Code(s): S06.5X9A - TRAUM SUBDR HEM W LOC OF UNSP DURATION, INIT Status: Chronic Comment: to followup with neurosurgery as outpatient (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 Review of Systems - Review of Systems Cardiovascular: negative: chest pain, palpitations, orthopnea, paroxysmal nocturnal dyspnea, edema, light headedness Gastrointestinal: negative: Nausea, Vomiting, Abdominal Pain, Diarrhea, Constipation, Melena, Hematochezia - Medications/Allergies Allergies/Adverse Reactions: Allergies Allergy/AdvReac Type Severity Reaction Status Date / Time Sulfa (Sulfonamide Allergy Unknown Verified 01/21/18 22:22 Antibiotics) Medications: Current Medications Acetaminophen (Tylenol) 650 mg PO Q4H PRN PRN Reason: Headache/Fever or Pain Last Admin: 02/01/18 09:05 Dose: 650 mg Atenolol (Tenormin) 100 mg PO DAILY [facility] Last Admin: 02/01/18 08:54 Dose: 100 mg Docusate Sodium (Colace) 100 mg PO BID [facility] Last Admin: 02/01/18 08:55 Dose: 100 mg Hydralazine HCl (Apresoline) 10 mg SLOW IVP Q4H PRN PRN Reason: SBP Greater Than 170 Last Admin: 02/01/18 16:19 Dose: 10 mg Vancomycin HCl 1.5 gm/ Sodium (Chloride) 300 mls @ 200 mls/hr IVPB 0500,1700 [facility] Last Admin: 02/01/18 05:43 Dose: 300 mls Melatonin (Melatonin) 3 mg PO HS [facility] Last Admin: 01/31/18 21:57 Dose: 3 mg Miscellaneous Medication (Pharmacy To Dose) 1 each IVPB PRN PRN PRN Reason: Pharmacy to dose Flurazepam Hcl [ Flurazepam Hcl] 15 Mg Capsule 0 each PO HS [facility] Last Admin: 01/31/18 21:58 Dose: 1 each Trifluoperazine Hcl [Trifluoperazine Hcl ] 2 Mg Tablet 0 each PO TID [facility] Last Admin: 02/01/18 14:58 Dose: 1 each Rosuvastatin Calcium (Crestor) 5 mg PO DAILY [facility] Last Admin: 02/01/18 08:59 Dose: 5 mg Saccharomyces Boulardii (Florastor) 250 mg PO DAILY [facility] Last Admin: 02/01/18 08:55 Dose: 250 mg Trihexyphenidyl HCl (Artane) 2 mg PO BID [facility] Last Admin: 02/01/18 08:56 Dose: 2 mg
[2018-02-01] MEDS ORDERED: Amlodipine 5 MG TAB PO SCH (17:00)
[2018-02-01] MEDS: Melatonin 3 MG TAB PO SCH (21:24)
[2018-02-01] MEDS: FLURAZEPAM HCL 15 MG PO SCH (21:25)
[2018-02-02] MEDS: Vancomycin HCl 1.5 GM in Sodium Chloride 0.9% 250 ML 300 ML IVPB SCH ×2 (04:25→16:46)
[2018-02-02 06:47] LABS: Anion Gap 11 mmol/L (10-20); BUN (Urea Nitrogen) 18 mg/dL (8.4-25.7); Calc. Creatinine Clearance 90 mL/min (70-130); Calcium 9.1 mg/dL (7.8-10.44); Carbon Dioxide 25 mmol/L (23-31); Chloride 104 mmol/L (98-107); Estimated GFR-MDRD Greater than 90; Glucose 112 mg/dL (83-110); Potassium 3.4 mmol/L (3.5-5.1); Sodium 137 mmol/L (136-145)
[2018-02-02 06:51] LABS: #Eosinphils 0.1 thou/uL (0.0-0.7); #Lymphocytes 1.5 thou/uL (1.20-3.40); #Monocytes 1.2 thou/uL (0.11-0.59); #Neutrophils 8.3 thou/uL (1.40-6.50); %Basophils 0.4 % (0.0-1.0); %Eosinophils 0.8 % (0.0-10.0); %Lymphocytes 13.6 % (21.0-51.0); %Monocytes 10.4 % (0.0-10.0); %Neutrophils 74.8 % (42.0-75.0); Hemoglobin 13.3 g/dL (14.0-18.0); Mean Corpuscular HGB CONC 33.9 g/dL (32.0-36.0); Mean Corpuscular Hemoglobin 32.6 pg (27.0-31.0); Mean Corpuscular Volume 96.1 fL (78.0-98.0); Mean Platelet Volume 7.2 fL (7.4-10.4); Platelet Count 259 thou/uL (130-400); RBC Distribution Width 12.5 % (11.5-14.5); Red Blood Cell (RBC) Count 4.06 mill/uL (4.70-6.10); White Blood Cell (WBC) Count 11.1 thou/uL (4.8-10.8)
[2018-02-02] MEDS ORDERED: Amlodipine 5 MG TAB PO SCH (09:00)
[2018-02-02] MEDS: Atenolol 50 MG TAB PO SCH (09:14)
[2018-02-02] MEDS: Rosuvastatin 5 MG TAB PO SCH (09:14)
[2018-02-02] MEDS: Trihexyphenidyl 2 MG TAB PO SCH (09:15)
[2018-02-02] MEDS: Saccharomyces boulardii 250 MG CAP PO SCH (09:15)
[2018-02-02] MEDS: Docusate 100 MG CAP PO SCH (09:15)
[2018-02-02] MEDS: TRIFLUOPERAZINE HCL 2 MG PO SCH ×2 (09:23→15:33)
--- NOTE | 2018-02-02 15:08 | PDOC.PN ---
- Subjective Encounter Start Date: 02/02/18 Encounter Start Time: 07:40 Pt seen for followup re: physical deconditioning. Denies chest pain, shortness of breath, fevers or chills. - Objective Resuscitation Status: Resuscitation Status FULL:Full Resuscitation MAR Reviewed: Yes Vital Signs & Weight: Vital Signs (12 hours) Temp Pulse Pulse Pulse Pulse Resp BP 02/02/18 11:25 99.4 F 77 18 02/02/18 11:16 69 73 78 02/02/18 10:55 72 78 02/02/18 09:14 85 148/74 H 02/02/18 08:55 02/02/18 08:00 98.7 F 85 16 02/02/18 04:00 98.7 F 95 20 BP BP BP BP Pulse Ox Pulse Ox Pulse Ox 02/02/18 11:25 166/78 H 95 02/02/18 11:16 170/77 H 172/79 H 166/78 H 02/02/18 10:55 152/75 H 166/78 H 94 L 96 02/02/18 09:14 02/02/18 08:55 94 L 02/02/18 08:00 148/74 H 94 L 02/02/18 04:00 158/75 H 94 L Weight Admit Weight 167 lb 1 oz Weight 167 lb 1 oz I&O: 02/01/18 02/02/18 02/03/18 06:59 06:59 06:59 Intake Total 450 Output Total 200 100 Balance 250 -100 Result Diagrams: 02/02/18 05:53 02/02/18 05:53 EKG Reviewed by me: Yes (Tele: NSR) Phys Exam - Physical Examination Constitutional: NAD HEENT: moist MMs Neck: supple Respiratory: clear to auscultation bilateral Cardiovascular: RRR Gastrointestinal: soft Neurological: moves all 4 limbs Psychiatric: normal affect Dx/Plan (1) Physical deconditioning Code(s): R53.81 - OTHER MALAISE Status: Acute Comment: awaiting insurance authorization, SNU vs Inpt Rehab (2) Subdural hematoma Code(s): S06.5X9A - TRAUM SUBDR HEM W LOC OF UNSP DURATION, INIT Status: Chronic Comment: no indication for surgery (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 Review of Systems - Medications/Allergies Allergies/Adverse Reactions: Allergies Allergy/AdvReac Type Severity Reaction Status Date / Time Sulfa (Sulfonamide Allergy Unknown Verified 01/21/18 22:22 Antibiotics) Medications: Current Medications Acetaminophen (Tylenol) 650 mg PO Q4H PRN PRN Reason: Headache/Fever or Pain Last Admin: 02/01/18 09:05 Dose: 650 mg Amlodipine Besylate (Norvasc) 5 mg PO DAILY [facility] Last Admin: 02/02/18 09:14 Dose: 5 mg Atenolol (Tenormin) 100 mg PO DAILY [facility] Last Admin: 02/02/18 09:14 Dose: 100 mg Docusate Sodium (Colace) 100 mg PO BID [facility] Last Admin: 02/02/18 09:15 Dose: 100 mg Hydralazine HCl (Apresoline) 10 mg SLOW IVP Q4H PRN PRN Reason: SBP Greater Than 170 Last Admin: 02/01/18 16:19 Dose: 10 mg Vancomycin HCl 1.5 gm/ Sodium (Chloride) 300 mls @ 200 mls/hr IVPB 0500,1700 [facility] Last Admin: 02/02/18 04:25 Dose: 300 mls Melatonin (Melatonin) 3 mg PO HS [facility] Last Admin: 02/01/18 21:24 Dose: 3 mg Miscellaneous Medication (Pharmacy To Dose) 1 each IVPB PRN PRN PRN Reason: Pharmacy to dose Flurazepam Hcl [ Flurazepam Hcl] 15 Mg Capsule 0 each PO HS [facility] Last Admin: 02/01/18 21:25 Dose: 1 each Trifluoperazine Hcl [Trifluoperazine Hcl ] 2 Mg Tablet 0 each PO TID [facility] Last Admin: 02/02/18 09:23 Dose: 1 each Rosuvastatin Calcium (Crestor) 5 mg PO DAILY [facility] Last Admin: 02/02/18 09:14 Dose: 5 mg Saccharomyces Boulardii (Florastor) 250 mg PO DAILY [facility] Last Admin: 02/02/18 09:15 Dose: 250 mg Trihexyphenidyl HCl (Artane) 2 mg PO BID [facility] Last Admin: 02/02/18 09:15 Dose: 2 mg
[2018-02-02] MEDS ORDERED: Amlodipine 10 MG TAB PO SCH (15:15)
[2018-02-02 15:29] VITALS: TEMP 99.7
[2018-02-02] MEDS ORDERED: Potassium Chloride 20 MEQ TAB PO SCH (16:00)
[2018-02-02 16:52] VITALS: BP 157/77
--- NOTE | 2018-02-03 02:25 | DIS ---
PRIMARY CARE PROVIDER: Irving Rhodes MD DATE OF ADMISSION: 01/29/2018 DATE OF DISCHARGE: 02/02/2018 DISCHARGE DIAGNOSES: 1. Physical deconditioning. 2. Subdural hematoma. 3. Pyogenic arthritis/bursitis with MRSA. CONDITION OF PATIENT ON THE DAY OF DISCHARGE: Stable. I assessed Mr. King on the day of discharge. Please refer to my daily progress note for further details regarding this [id number] encounter. DISCHARGE MEDICATIONS: Vancomycin 1.5 grams twice daily, Florastor 250 mg daily, amlodipine 10 mg da juan, trihexyphenidyl 2 mg 2 times a day, trifluoperazine 2 mg 3 times a day, Crestor 5 mg daily, pepe tonin 2.5 mg at bedtime, flurazepam 30 mg at bedtime, atenolol 100 mg daily. HOSPITAL COURSE: Mr. King is a pleasant 82-year-old gentleman who was admitted to [facility] on 01/29/[address] scan showed subdural hematoma. He was seen by Neurosu rgery Service. They felt that it was not an emergent surgical matter. He may need surgical interven tion at some point. He has been advised to follow up with Neurosurgery Service as outpatient. His vancomycin was continued. Vancomycin dose was increased to 1.5 grams twice daily based on vancom ycin trough levels. He was evaluated by therapy services. He has been accepted for inpatient rehabilitation at [facility]. He is being discharged for inpatient rehabilitation. On the day of discharge, he has white count 11,100, hemoglobin 13.3, platelet count 259,000. Sodium 137, potassium 3.4, which is being replaced, creatinine 0.69, and calcium 9.1. He had a normal TSH a nd normal vitamin B12 levels during this hospitalization. Many thanks for allowing me to participate in your patient's care. Please feel free to contact me wi th any questions or concerns. DISCHARGE DESTINATION: [facility]. TOTAL AMOUNT OF TIME SPENT COORDINATING THIS DISCHARGE: 33 minutes.
[2018-02-03] MEDS ORDERED: Amlodipine 10 MG TAB PO SCH (09:00)
--- NOTE | 2018-02-06 11:53 | EKG ---
Test Reason : FALL Blood Pressure : / mmHG Vent. Rate : 076 BPM Atrial Rate : 076 BPM P-R Int : 186 ms QRS Dur : 092 ms QT Int : 414 ms P-R-T Axes : 056 -15 028 degrees QTc Int : 465 ms Normal sinus rhythm Normal ECG Confirmed by MARIO DON DO ([id number]), editor continuity and script RAISA KEITH ([id number]) on 02/06/2018 11:52:48 AM Referred By: ARIAN Confirmed By:MARIO DON DO
== END 2018-02-02 20:02 | DRG 86 ==
LOC: ERS 11:20 → 2SE 16:04
PROVIDERS: ADMIT Internal Medicine; ATTEND Internal Medicine
DX: S06.5X0A Traumatic subdural hemorrhage without loss of consciousness, initial encounter (principal); M00.0 Staphylococcal arthritis and polyarthritis; Z91.81 History of falling; W19.XXXA Unspecified fall, initial encounter; Y92.009 Unspecified place in unspecified non-institutional (private) residence as the place of occurrence of the external cause; I10 Essential (primary) hypertension; F20.9 Schizophrenia, unspecified; G47.00 Insomnia, unspecified; N40.0 Benign prostatic hyperplasia without lower urinary tract symptoms; G20 Parkinson's disease; B95.62 Methicillin resistant Staphylococcus aureus infection as the cause of diseases classified elsewhere; Z88.2 Allergy status to sulfonamides
CPT/HCPCS: 36415; 70450; 80048; 80053; 80202; 81001; 82607; 84443; 85025; 93005; G0390; G8978-GP-CM; G8979-GP-CI; G8987-GO-CK; G8988-GO-CI; J0360; J3370; J7050

== ENCOUNTER 2019-04-11 11:36 | Outpatient (CLI) | payer MEDICARE ==
--- NOTE | 2019-04-11 13:30 | RAD ---
RIGHT ELBOW 4 VIEWS: Date: 04/11/19 HISTORY: Fall, hitting elbow. FINDINGS: There is a prominent olecranon spur at the triceps tendon insertion. There are also arthritic changes of the elbow noted with spurring of the olecranon and coronoid process. I do not see any signs of an y acute fracture. There may be minimal joint effusion present. IMPRESSION: No evidence of fracture. POS: [facility]
== END 2019-04-11 11:37 | disposition home or self-care (01) ==
LOC: BICRAD 11:36
PROVIDERS: ATTEND Nurse Practitioner Family
DX: M25.521 Pain in right elbow (principal)

== ENCOUNTER 2019-04-13 09:59 | Inpatient (IN) | payer MEDICARE ==
[2019-04-13] MEDS ORDERED: Piperacillin/Tazobactam 3.375 GM VIAL ONE (10:28)
[2019-04-13 11:14] LABS: #Eosinphils 0.1 thou/uL (0.0-0.7); #Lymphocytes 1.1 thou/uL (1.20-3.40); #Monocytes 1.3 thou/uL (0.11-0.59); #Neutrophils 12.6 thou/uL (1.40-6.50); %Basophils 0.2 % (0.0-1.0); %Eosinophils 0.4 % (0.0-10.0); %Lymphocytes 7.3 % (21.0-51.0); %Monocytes 8.7 % (0.0-10.0); %Neutrophils 83.4 % (42.0-75.0); Hemoglobin 14.4 g/dL (14.0-18.0); Mean Corpuscular HGB CONC 34.2 g/dL (32.0-36.0); Mean Corpuscular Hemoglobin 34.3 pg (27.0-31.0); Platelet Count 250 thou/uL (130-400); RBC Distribution Width 11.6 % (11.5-14.5); White Blood Cell (WBC) Count 15.1 thou/uL (4.8-10.8)
[2019-04-13] MEDS ORDERED: Bacitracin 1 PK ONE (11:14)
[2019-04-13 11:44] LABS: Anion Gap 7 mmol/L (10-20); BUN (Urea Nitrogen) 17 mg/dL (8.4-25.7); Calc. Creatinine Clearance 0 mL/min (70-130); Calcium 10.2 mg/dL (7.8-10.44); Carbon Dioxide 33 mmol/L (23-31); Chloride 100 mmol/L (98-107); Estimated GFR-MDRD 89; Glucose 181 mg/dL (83-110); Potassium 3.9 mmol/L (3.5-5.1); Sodium 136 mmol/L (136-145)
[2019-04-13] MEDS ORDERED: Mupirocin 2% Ointment 22 GM Tube TOP SCH ×2 (11:45→21:00)
[2019-04-13] MEDS ORDERED: Sodium Chloride 0.9% 1,000 ML IV SCH (13:30)
[2019-04-13 13:31] VITALS: BMI 20.9
[2019-04-13] MEDS ORDERED: Piperacillin/Tazobactam 3.375 GM in Sodium Chloride 0.9% 100 ML IVPB SCH (18:00)
[2019-04-13] MEDS ORDERED: Vancomycin HCl 1 GM in Premix Bag 1 BAG IVPB SCH (21:00)
--- NOTE | 2019-04-13 21:26 | PDOC.HHP ---
Hospitalist HPI - History of Present Illness fall History of Present Illness: This is an 83 year old male who presented to the ER with a fall one weeks ago. The patient states that he was walking and turned in an awkward way and slipped and fell on his right arm. He denied passing out or hitting his head. His arm started getting swollen and he received three ceftriaxone antibiotic injections with no improvement. The last one was this morning. He presented to an urgent care who sent him to the ER. He denies fever, numbness in his upper extremity, purulent drainage from his arm. He denies pain except for when he tries to lift his arm above his head. ED Course: In the ER , he was given bactroban ointment, vancomycin, zosyn and normal saline. He had an elbow Xray on the which showed no evidence of fracture. Hospitalist ROS - Review of Systems Constitutional: denies: fever, chills Eyes: denies: pain, vision change ENT: denies: ear pain, ear discharge - Medication Medications: Active Medications Generic Name Dose Route Start Last Admin Trade Name Reynaldo PRN Reason Stop Dose Admin Sodium Chloride 1,000 mls @ 75 mls/hr 04/13/19 13:30 04/13/19 13:59 Normal Saline 0.9% IV 04/13/19 22:00 1,000 mls .[id number] LISBETH Administration Vancomycin HCl 1 gm/ Device 200 mls @ 200 mls/hr 04/13/19 21:00 04/13/19 20: 27 IVPB 04/13/19 22:00 200 mls 2100 LISBETH Administration Piperacillin Sod/Tazobactam 100 mls @ 200 mls/hr 04/13/19 18:00 04/13/19 18: 04 Sod 3.375 gm/ Sodium Chloride IVPB 04/13/19 22:00 100 mls Q6HR LISBETH Administration Mupirocin 0 gm 04/13/19 21:00 04/13/19 20:28 Bactroban 2% Ointment TOP 04/13/19 22:00 1 applic BID LISBETH Administration Sodium Chloride 10 ml 04/13/19 21:00 04/13/19 20:28 Flush - Normal Saline IVF 10 ml Q12HR LISBETH Administration Hospitalist History - Past Medical History Cardiac: reports: HTN Psych: reports: Anxiety, Schizophrenia Other Medical History: Neuropathy and weakness in legs - Past Surgical History Other Surgical History: Appendectomy Cholecystectomy Prostate fluid removed Reports treatments on lower extremities - Family History Other Family History: Unaware - Social History Smoking Status: Never smoker Alcohol: reports: None Drugs: reports: none Living Situation: With Family - Exam General Appearance: NAD, awake alert Eye: PERRL, anicteric sclera ENT: normocephalic atraumatic, no oropharyngeal lesions Neck: supple, symmetric, no JVD, no thyromegaly Heart: RRR, no murmur, no gallops, no rubs Respiratory: no wheezes, no rales, no ronchi. negative: CTAB Gastrointestinal: soft, non-tender, non-distended, normal bowel sounds Extremities: no cyanosis, no clubbing Extremities - other findings: elbow swelling noted, warmth and tenderness on right arm with swelling Skin: normal turgor, no lesions, no rashes Skin - other findings: diffuse erythema from forearm extending to axilla, warm and tender Neurological: cranial nerve grossly intact, normal sensation to touch, no focal deficits, no new deficit Musculoskeletal: normal tone, normal strength, no muscle wasting Psychiatric: normal affect, normal behavior, A&O x 3, oriented to person Psychiatric - other findings: mild speech impediment Hospitalist Results - Labs Result Diagrams: 04/13/19 10:40 04/13/19 10:40 Lab results: WBC 15.1 thou/uL (4.8-10.8) H 04/13/19 10:40 Hgb 14.4 g/dL (14.0-18.0) 04/13/19 10:40 Hct 42.1 % (42.0-52.0) 04/13/19 10:40 MCV 100.0 fL (78.0-98.0) H 04/13/19 10:40 Plt Count 250 thou/uL (130-400) 04/13/19 10:40 Neutrophils % 83.4 % (42.0-75.0) H 04/13/19 10:40 Sodium 136 mmol/L (136-145) 04/13/19 10:40 Potassium 3.9 mmol/L (3.5-5.1) 04/13/19 10:40 Chloride 100 mmol/L (98-107) 04/13/19 10:40 Carbon Dioxide 33 mmol/L (23-31) H 04/13/19 10:40 BUN 17 mg/dL (8.4-25.7) 04/13/19 10:40 Creatinine 0.83 mg/dL (0.7-1.3) 04/13/19 10:40 Glucose 181 mg/dL (83-110) H 04/13/19 10:40 Calcium 10.2 mg/dL (7.8-10.44) 04/13/19 10:40 Hospitalist H&P A/P - Plan Plan: This is an 83 year old male with past medical history of schizophrenia, hypertension who presented after a fall, failed outpatient treatment of cellulitis #RUE cellulitis #Leukocytosis - continue IV vancomycin and zosyn, and mupirocin. Did not respond to ceftriaxone injections. Elbow X ray on showed no fracture. Will check right forearm X ray - WBC of 15, continue to trend #S/p fall - physical therapy and occupational therapy Hypertension - will hold antihypertensives for now Hyperlipidemia - rosuvastatin Anxiety - continue benzo DVt prophylaxis: enoxaparin Code status: appears to be full code, says his will states if 2-3 doctors say treatment futile then do not proceed
[2019-04-13] MEDS ORDERED: Gabapentin 300 MG CAP PO SCH (22:00)
[2019-04-13] MEDS ORDERED: Vancomycin HCl 750 MG in Sodium Chloride 0.9% 250 ML 250 ML IVPB SCH (22:00)
[2019-04-13] MEDS ORDERED: Melatonin 3 MG TAB PO SCH (22:00)
[2019-04-13] MEDS ORDERED: Temazepam 15 MG CAP PO SCH (22:15)
[2019-04-13] MEDS: Piperacillin/Tazobactam 3.375 GM in Sodium Chloride 0.9% 100 ML IVPB SCH (23:35)
[2019-04-14] MEDS: Piperacillin/Tazobactam 3.375 GM in Sodium Chloride 0.9% 100 ML IVPB SCH ×3 (05:23→17:23)
[2019-04-14] MEDS: Rosuvastatin 5 MG TAB PO SCH (08:03)
[2019-04-14] MEDS: Enoxaparin Sodium 40 MG/0.4 ML SYRINGE SC SCH ×2 (08:03→09:01)
--- NOTE | 2019-04-14 08:30 | RAD ---
EXAM: Right forearm: 2 views INDICATIONS: Edema and cellulitis. Fall. COMPARISON: None. FINDINGS: No fracture or acute osseous abnormality. IMPRESSION: No acute finding
[2019-04-14] MEDS: Trihexyphenidyl 2 MG TAB PO SCH ×2 (09:53→12:19)
[2019-04-14] MEDS ORDERED: Vancomycin HCl 750 MG in Sodium Chloride 0.9% 250 ML 250 ML IVPB SCH (10:00)
--- NOTE | 2019-04-14 17:43 | PDOC.HOSPP ---
- Subjective Encounter Date: 04/14/19 Encounter Time: 17:41 Subjective: The patient is doing much better. Improved arm pain, not as much pain when lifting arm above head. No fevers or chills. He has mild tingling. He walked with PT, was slightly unsteady - Objective Vital Signs & Weight: Vital Signs (12 hours) Temp Pulse Resp BP Pulse Ox 04/14/19 16:22 98.5 F 71 16 144/77 H 92 L 04/14/19 11:54 98.3 F 80 18 135/74 94 L 04/14/19 08:15 98.2 F 77 16 136/72 94 L Weight Weight 146 lb 5 oz I&O: 04/13/19 04/14/19 04/15/19 06:59 06:59 06:59 Intake Total 1550 Output Total 700 Balance 850 Result Diagrams: 04/13/19 10:40 04/13/19 10:40 Hospitalist ROS - Review of Systems Constitutional: denies: fever, chills - Medication Medications: Active Medications Generic Name Dose Route Start Last Admin Trade Name Reynaldo PRN Reason Stop Dose Admin Enoxaparin Sodium 40 mg 04/14/19 09:00 04/14/19 09:01 Lovenox SC 40 mg 0900 LISBETH Administration Rosuvastatin Calcium 5 mg 04/14/19 09:00 04/14/19 08:03 Crestor PO 5 mg DAILY LISBETH Administration Sodium Chloride 10 ml 04/13/19 21:00 04/14/19 08:03 Flush - Normal Saline IVF 10 ml Q12HR LISBETH Administration Trihexyphenidyl HCl 2 mg 04/14/19 09:00 04/14/19 12:19 Artane PO 2 mg BID LISBEHT Administration - Exam General Appearance: NAD, awake alert Eye: PERRL, anicteric sclera ENT: normocephalic atraumatic, no oropharyngeal lesions Neck: supple, symmetric, no JVD, no thyromegaly Heart: RRR, no murmur, no gallops, no rubs Respiratory: CTAB, no wheezes, no rales, no ronchi Gastrointestinal: soft, non-tender, non-distended Extremities: no cyanosis, no clubbing, no edema Extremities - other findings: RUE edema 2+ pitting on the elbow, erythema mostly contained to elbow Skin: normal turgor, no lesions, no rashes Skin - other findings: significantly improved rash, no longer near the axilla Neurological: cranial nerve grossly intact, normal sensation to touch, no focal deficits, no new deficit Musculoskeletal: normal tone, normal strength, no muscle wasting Hosp A/P - Plan This is an 83 year old male with history of schizophrenia who presented after a fall, failed outpatient treatment of antibiotics RUE cellulitis - significantly improved on vanc and zosyn and mupirocin. Will switch to doxycycyline and augmentin and if stable, will d/c tomorrow - WBC 15 on admission, rechec tomorrow S/p Fall - PT saw patient, recommended d/c home with home health Hypertension - BP 130-140 - check orthostatics, hold amlodipine Hyperlipidemia - rosuvastatin Anxiety - continue benzo Code status: full code
[2019-04-14] MEDS: Amoxicillin/Potassium Clav 875 MG TAB PO SCH (20:56)
[2019-04-14] MEDS: Temazepam 15 MG CAP PO SCH (20:57)
[2019-04-14] MEDS: Doxycycline 100 MG CAP PO SCH (20:57)
[2019-04-14] MEDS: Gabapentin 300 MG CAP PO SCH (20:57)
[2019-04-14] MEDS: Melatonin 3 MG TAB PO SCH (20:57)
[2019-04-14 21:36] LABS: Vancomycin, Trough 9.2 ug/mL
[2019-04-15 05:16] LABS: Hemoglobin 12.7 g/dL (14.0-18.0); Mean Corpuscular HGB CONC 34.6 g/dL (32.0-36.0); Mean Corpuscular Hemoglobin 34.3 pg (27.0-31.0); Mean Corpuscular Volume 99.2 fL (78.0-98.0); Mean Platelet Volume 6.4 fL (7.4-10.4); Platelet Count 248 thou/uL (130-400); RBC Distribution Width 11.4 % (11.5-14.5); White Blood Cell (WBC) Count 9.8 thou/uL (4.8-10.8)
[2019-04-15] MEDS: Rosuvastatin 5 MG TAB PO SCH (07:48)
[2019-04-15] MEDS: Enoxaparin Sodium 40 MG/0.4 ML SYRINGE SC SCH (07:48)
[2019-04-15] MEDS: Doxycycline 100 MG CAP PO SCH ×2 (07:48→20:26)
[2019-04-15] MEDS: Amoxicillin/Potassium Clav 875 MG TAB PO SCH ×2 (07:48→20:26)
[2019-04-15] MEDS: Trihexyphenidyl 2 MG TAB PO SCH ×2 (07:48→20:27)
--- NOTE | 2019-04-15 15:00 | ULT ---
RIGHT UPPER EXTREMITY VENOUS DUPLEX STUDY: INDICATION: Right upper extremity pain and edema. FINDINGS: Veins were evaluated with ultrasound and Doppler. Color Doppler and spectral analysis with compressi on. The right internal jugular vein shows normal flow. Right subclavian vein shows flow with Doppler. Right axillary vein, brachial vein, cephalic vein, basilic vein, radial vein, and ulnar vein all show normal flow and compression. No evidence of venous thrombosis. IMPRESSION: No evidence of right upper extremity venous thrombosis. POS: OFF
--- NOTE | 2019-04-15 17:12 | DIS ---
DATE OF ADMISSION: 04/13/2019 DATE OF DISCHARGE: 04/16/2019 DISCHARGE DIAGNOSES: Status post mechanical fall, right upper extremity cellulitis, leukocytosis, anemia. HISTORY OF PRESENT ILLNESS: This is an 83-year-old male with a past medical history of hypertension, anxiety, schizophrenia, who presented to the emergency room with a fall 1 week ago. The patient states that he fell while he was walking to the bathroom and turned in an awkward way and fell on his right arm. He denied any syncopal episode. The patient noticed that his arm started getting swollen and apparently had received 3 ceftriaxone antibiotic injections without any improvement. He presented to an urgent care, who sent him to the ER. Of note, the patient had a similar presentation last year where he was diagnosed with olecranon bursitis and went to the operating room for incision and drainage. In the emergency room, the patient had an x-ray of his elbow, which showed no evidence of fracture. There is a minimal joint effusion. The patient was admitted and started on IV vancomycin, Zosyn, and mupirocin empirically. HOSPITAL COURSE: Leukocytosis/right upper extremity cellulitis: The patient was continued on IV vancomycin and Zosyn. His white count was initially 15.1, which improved to 9.8; Initially, the patient's erythema extended all the way up to his axilla and was slightly firm and tender to palpation. Forearm x-ray done on the showed no acute finding. On 04/14, his erythema had improved by approximately 50%. He was switched to oral Augmentin and doxycycline on the evening of the . On the morning of the , the patient's cellulitis seemed confined mostly to the elbow area and slightly in the olecranon area. He had a Doppler ultrasound of his arm that showed no DVT. Given that the patient had an incision and drainage done in the past for olecranon bursitis, orthopedic was asked to evaluate the patient's arm for need of any drainage. They felt that his arm looked great and there was no need for any I and D. The patient will be discharged on Augmentin and doxycycline for an additional 6 days to complete a 7 -day course of antibiotics. He should follow up with his PCP in a week. S/p Fall: this appeared to be more mechanical fall and not cardiac. The patient was evaluated by Physical Therapy, who recommended the patient be discharged home with Home Health. Case Management was consulted for setup of these services, however unable until 04/16, therefore will be discharged on 04/16 Hypertension: The patient's amlodipine was held initially. Orthostatics were performed, which were negative from sitting to standing. The patient was resumed on his outpatient amlodipine. Hyperlipidemia: Continue rosuvastatin. Anxiety: Continue benzodiazepine. Anemia: The patient's hemoglobin was 12.7 on the day of discharge. Vitamin B12 and folate levels are pending. Treatment will be prescribed if these levels are low. DISCHARGE PHYSICAL EXAMINATION: VITAL SIGNS: Temperature 98.5, heart rate 69, respiratory rate 14, O2 saturation 93% on room air, blood pressure 138/72. GENERAL: The patient is alert, awake, oriented x3. CVS: Regular rate and rhythm with no murmurs, rubs, or gallops. LUNGS: Clear to auscultation bilaterally. RIGHT ARM: The patient has 3+ pitting edema from his elbow extending slightly 3 inches above that. There is no tenderness to palpation. There is no warmth. There is mild erythema in that area. The patient states he had swelling of his hand yesterday, but no longer. There is no edema in his lower extremities or left upper extremity. The patient is able to raise his right arm above his head without any pain. PERTINENT LABS: CBC on 04/15: Shows a white count of 9.8, hemoglobin 12.7, hematocrit 36.7, MCV 99.2. BMP on 04/13: Was unremarkable except for slightly elevated bicarb of 33, glucose was 181. Hemoglobin A1c last year was 5.6. Toxicology on 04/14: Vancomycin trough 9.2. PERTINENT IMAGING: Elbow x-ray on 04/11: Shows minimal joint effusion. Arthritic changes of the elbow with spurring of the olecranon and coronoid process. Forearm x-ray on 04/14: Shows no acute finding. Vascular ultrasound on 04/15: Shows no evidence of right upper extremity venous thrombosis. DISCHARGE CONDITION: Stable to home. DISPOSITION: Discharged home with Home Health. ACTIVITY: As tolerated. DIET: Heart-healthy diet. DISCHARGE MEDICATIONS: 1. Augmentin 875 mg p.o. q.12. 2. Doxycycline 100 mg p.o. b.i.d. 3. Gabapentin 600 mg p.o. q.h.s. 4. Crestor 5 mg p.o. daily. 5. Melatonin 2.5 mg p.o. q.h.s. 6. Trihexyphenidyl 2 mg p.o. b.i.d. 7. Amlodipine 10 mg p.o. daily. DISCHARGE INSTRUCTIONS: The patient should follow up with his PCP in a week. He should continue antibiotics for an additional 6 days and come back to the hospital if he notices any worsening rash, fevers, or swelling. Also come back to the ER if he notices any numbness in his arm. Job ID: [id number] MTDD
--- NOTE | 2019-04-15 17:55 | PDOC.HOSPP ---
- Subjective Encounter Date: 04/15/19 Encounter Time: 17:54 Subjective: The patient is doing well, says his erythema was down to hand yesterday now that 's gone. Ortho evaluated patient given recent history of olecranon bursitis and felt no drainage indicated. US showed no DVT. Patient recommended for home health by PT, however case management gone for the day - Objective Vital Signs & Weight: Vital Signs (12 hours) Temp Pulse Resp BP Pulse Ox 04/15/19 15:48 69 14 138/72 93 L 04/15/19 07:50 92 L 04/15/19 07:35 98.5 F 91 18 158/81 H 92 L Weight Admit Weight 146 lb 5 oz Weight 146 lb 5 oz I&O: 04/14/19 04/15/19 04/16/19 06:59 06:59 06:59 Intake Total 1550 1570 Output Total 700 1600 Balance 850 -30 Result Diagrams: 04/15/19 04:59 04/13/19 10:40 Hospitalist ROS - Medication Medications: Active Medications Generic Name Dose Route Start Last Admin Trade Name Reynaldo PRN Reason Stop Dose Admin Amoxicillin/Clavulanate Potassium 875 mg 04/14/19 21:00 04/15/19 07:48 Augmentin PO 875 mg Q12HR LISBETH Administration Doxycycline Hyclate 100 mg 04/14/19 21:00 04/15/19 07:48 Vibramycin PO 100 mg BID LISBETH Administration Enoxaparin Sodium 40 mg 04/14/19 09:00 04/15/19 07:48 Lovenox SC 40 mg 0900 LISBETH Administration Gabapentin 600 mg 04/14/19 21:00 04/14/19 20:57 Neurontin PO 600 mg HS LISBETH Administration Melatonin 3 mg 04/14/19 21:00 04/14/19 20:57 Melatonin PO 3 mg HS LISBETH Administration Rosuvastatin Calcium 5 mg 04/14/19 09:00 04/15/19 07:48 Crestor PO 5 mg DAILY LISBETH Administration Sodium Chloride 10 ml 04/13/19 21:00 04/15/19 07:48 Flush - Normal Saline IVF 10 ml Q12HR LISBETH Administration Temazepam 15 mg 04/14/19 21:00 04/14/19 20:57 Restoril PO 15 mg HS LISBETH Administration Trihexyphenidyl HCl 2 mg 04/14/19 09:00 04/15/19 07:48 Artane PO 2 mg BID LISBETH Administration - Exam General Appearance: NAD, awake alert Eye: PERRL, anicteric sclera ENT: normocephalic atraumatic, no oropharyngeal lesions Neck: supple, symmetric, no JVD, no thyromegaly Heart: RRR, no murmur, no gallops, no rubs Respiratory: CTAB, no wheezes, no rales, no ronchi Gastrointestinal: soft, non-tender, non-distended, normal bowel sounds Extremities: no cyanosis Extremities - other findings: improving erythema limited to elbow and slightly above, mildly tender Skin: normal turgor, no lesions, no rashes Neurological: cranial nerve grossly intact, normal sensation to touch, no focal deficits, no new deficit Musculoskeletal: normal tone, normal strength, no muscle wasting Psychiatric: normal affect, normal behavior, A&O x 3, oriented to person Hosp A/P - Plan This is an 83 year old male with history of schizophrenia who presented after a fall, failed outpatient treatment of antibiotics RUE cellulitis - significantly improved on vanc and zosyn and mupirocin. Switched to doxycycyline and augmentin 04/14, continue for now -WBC down to 9.8 S/p Fall - PT saw patient, recommended d/c home with home health. Case management consult - orthostatics negative Hypertension - BP 130-140 -orthostatics negative, resume amlodipine Hyperlipidemia - rosuvastatin Anxiety - continue benzo. Ideally try to wean off Anemia - Hb 12.7 - MCV 99, check B12 and folate Disposition: d/c tomorrow after setting up home health Code status: full code
[2019-04-15] MEDS: Gabapentin 300 MG CAP PO SCH ×2 (20:26→20:31)
[2019-04-15] MEDS: Melatonin 3 MG TAB PO SCH (20:27)
[2019-04-15] MEDS: Temazepam 15 MG CAP PO SCH (20:28)
[2019-04-16] MEDS: Rosuvastatin 5 MG TAB PO SCH (08:52)
[2019-04-16] MEDS: Doxycycline 100 MG CAP PO SCH (08:52)
[2019-04-16] MEDS: Amoxicillin/Potassium Clav 875 MG TAB PO SCH (08:52)
[2019-04-16] MEDS: Enoxaparin Sodium 40 MG/0.4 ML SYRINGE SC SCH (08:53)
[2019-04-16] MEDS ORDERED: Clopidogrel Bisulfate 75 MG TAB ONE (08:56)
[2019-04-16] MEDS: Trihexyphenidyl 2 MG TAB PO SCH (08:58)
[2019-04-16 11:26] VITALS: BP 130/86; TEMP 98.5
--- NOTE | 2019-04-18 07:13 | CON ---
DATE OF CONSULTATION: 04/15/2019 This is Maria Hancock PA-C dictating a report for Sulaiman Duong MD. REQUESTING PHYSICIAN: Krysten Sauer MD CONSULT PHYSICIAN: Dr. Duong. HISTORY OF PRESENT ILLNESS: This is an 83-year-old male who has been in the hospital multiple times for right elbow arthritis and bursitis. This hospital admission was for the same. He was last seen by Orthopedics, actually by Dr. Galvin in January of this year. He was noted to have a draining olecranon bursitis and was being followed by Dr. Pederson. He was previously seen by our service several times before that including by Dr. Carl as well as Dr. Duong. He has been on several different antibiotics for this olecranon bursitis, which always seem to be draining at the time he is in the hospital. At this hospital presentation, he presented with redness to the right elbow. He was admitted to the Medicine Service for cellulitis of the right elbow. He has been admitted for the last two days and is set to be discharged today. I was consulted by the hospitalist to see the patient to make sure he was okay for discharge and there were no further concerns. Currently at bedside. The patient states he is feeling well. He feels that his elbow has much improved. He has no difficulty with movement of the elbow. He notes that there has been some drainage in the past, although he is not sure whether it is draining right now. He is right-hand dominant. Denies any current fever or chills. Denies any numbness or tingling. PAST MEDICAL HISTORY: Hypertension, schizophrenia, insomnia. PAST SURGICAL HISTORY: Appendectomy, cholecystectomy, hydrocele. SOCIAL HISTORY: The patient lives at home with his . He denies any smoking, alcohol, or illicit drug use. FAMILY HISTORY: Reviewed and noncontributory. REVIEW OF SYSTEMS: Ten-point review of systems was conducted and otherwise negative except for stated above. PHYSICAL EXAMINATION: VITAL SIGNS: Temperature 98.5, pulse of 69, respiratory rate of 14, O2 saturation 93% on room air, and blood pressure 138/72. GENERAL: The patient is awake and alert. He is in no apparent distress. He is lying in bed at this time. There is no family in the room. HEENT: Normocephalic and atraumatic. NECK: Supple. Trachea midline. Breathing nonlabored. EXTREMITIES: The right upper extremity was evaluated. There are two Steri-Strips noted to the olecranon area of the right elbow. There is no current drainage, although it does appear that there was some previous drainage and applied Steri-Strips. No surrounding erythema. Range of motion evaluation shows -10 to greater than 90 degrees. Distal neurovascular status intact. No palpable fluid collection and no expressed fluid on exam at this time. LABORATORY DATA: Which was reviewed today, shows CBC including white blood cell count of 9.8. This was previously 15.5 on 04/13. Hemoglobin 12.7, hematocrit 36.7, and platelet count of 248. IMPRESSION: Right elbow olecranon bursitis with spontaneous drainage. PLAN: At this time, the patient has no evidence of a septic joint. It appears that his olecranon bursa is again spontaneously draining. He has been on IV hospital antibiotics. These will be switched to p.o. antibiotics including what appears to be doxycycline and Augmentin. He will continue these and he can follow up as an outpatient at that time. Job ID: [id number]
== END 2019-04-16 11:29 | disposition home health service (06) | DRG 603 ==
LOC: ERS 09:59 → T4-B 13:13
PROVIDERS: ADMIT Internal Medicine; ATTEND Internal Medicine
DX: L03.113 Cellulitis of right upper limb (principal); I10 Essential (primary) hypertension; K21.9 Gastro-esophageal reflux disease without esophagitis; F25.9 Schizoaffective disorder, unspecified; G47.9 Sleep disorder, unspecified; E78.00 Pure hypercholesterolemia, unspecified; W01.0XXA Fall on same level from slipping, tripping and stumbling without subsequent striking against object, initial encounter; F41.9 Anxiety disorder, unspecified; G62.9 Polyneuropathy, unspecified; E78.5 Hyperlipidemia, unspecified; D64.9 Anemia, unspecified; Z90.49 Acquired absence of other specified parts of digestive tract; Z87.820 Personal history of traumatic brain injury; Z88.2 Allergy status to sulfonamides
CPT/HCPCS: 36415; 80048; 80202; 82607; 82746; 85025; 85027; 87040; 96365; 96367; J1650; J2543; J3370; J3490; J7050

== ENCOUNTER 2022-04-25 16:27 | Emergency (ER) | payer OTHER, MEDICARE | END 2022-04-25 19:07 | disposition home or self-care (01) | LOC: ERS 16:27 | DX: S62.112A Displaced fracture of triquetrum [cuneiform] bone, left wrist, initial encounter for closed fracture (principal); E78.5 Hyperlipidemia, unspecified; I10 Essential (primary) hypertension; W01.0XXA Fall on same level from slipping, tripping and stumbling without subsequent striking against object, initial encounter | CPT/HCPCS: 29125 ==